=== PATIENT | male | born 1945 | race Caucasian/White ===

== ENCOUNTER → 2020-03-06 11:10 | Outpatient (BNVA) | payer MEDICARE, SELFPAY | PROVIDERS: PCP Internal Medicine Geriatric Medicine; Visit Provider Urology | DX: Z13.89 Encounter for screening for other disorder (principal) | CPT/HCPCS: 99202 ==

== ENCOUNTER 2020-03-17 07:53 | Day surgery (SDC) | payer MEDICARE, SELFPAY ==
[2020-03-11 13:21] VITALS: BMI 30.4
--- NOTE | 2020-03-13 12:23 | HO.ANESPROP2 ---
Documented by User: Sepideh Vizcarra 03/13/20 12:27 HPI - Anesthesia Eval Consult details Narrative: 74yo M for Cystoscopy, Ureteroroscopy, Retro with Stent Placement PMFSH Past Medical History Medical History Arthritis Asthma Dementia Elevated cholesterol History of colon cancer Surgical History Surgical History History of bowel resection Hx of colonoscopy Social History Social History Alcohol intake: never Smoking Status: Former smoker Smoking Quit Date: 1984 Use of substances other than those prescribed or required for medical reasons: No Advance Directives: No Advance Directives Information Provided: No Advance Directives on File: No Recently lost weight without trying: No Meds Allergies Allergy/AdvReac Type Severity Reaction Status Date / Time No Known Allergies Allergy Verified 03/11/20 13:15 Home Medications Medication Instructions Recorded Confirmed Type atorvastatin 20 mg tablet 20 mg PO DAILY 03/06/20 03/11/20 History donepezil 10 mg tablet 10 mg PO BEDTIME 03/06/20 03/11/20 History fluticasone 250 mcg-salmeterol 50 1 ea PO Q12H 03/06/20 03/11/20 History mcg/dose blistr powdr for inhalation furosemide 20 mg tablet 20 mg PO DAILY 03/06/20 03/11/20 History memantine 10 mg tablet 10 mg PO DAILY 03/06/20 03/11/20 History polyethylene glycol 3350 17 g PO 03/06/20 History gram/dose oral powder docusate sodium [DOK] 1 cap PO BID 03/11/20 03/11/20 History fluticasone propion-salmeterol 1 puff PO Q12H 03/11/20 03/11/20 History [Wixela Inhub] Exam Exam Date and Time: March 13, 2020 122 Height,Weight and Vital Signs: Height 5 ft 6 in Weight 85.729 kg Assessment and Plan Assessment Anesthesia Assessment: Chart Reviewed Documented by User: Mell James 03/17/20 09:35 [facility] Past Medical History Medical History Arthritis Asthma Dementia Elevated cholesterol History of colon cancer Surgical History Surgical History History of bowel resection Hx of colonoscopy Social History Social History Alcohol intake: never Smoking Status: Former smoker Smoking Quit Date: 1984 Use of substances other than those prescribed or required for medical reasons: No Advance Directives: No Advance Directives Information Provided: No Advance Directives on File: No Recently lost weight without trying: No Meds Allergies Allergy/AdvReac Type Severity Reaction Status Date / Time No Known Allergies Allergy Verified 03/11/20 13:15 Home Medications Medication Instructions Recorded Confirmed Type atorvastatin 20 mg tablet 20 mg PO DAILY 03/06/20 03/11/20 History donepezil 10 mg tablet 10 mg PO BEDTIME 03/06/20 03/11/20 History fluticasone 250 mcg-salmeterol 50 1 ea PO Q12H 03/06/20 03/11/20 History mcg/dose blistr powdr for inhalation furosemide 20 mg tablet 20 mg PO DAILY 03/06/20 03/11/20 History memantine 10 mg tablet 10 mg PO DAILY 03/06/20 03/11/20 History polyethylene glycol 3350 17 g PO 03/06/20 History gram/dose oral powder docusate sodium [DOK] 1 cap PO BID 03/11/20 03/11/20 History fluticasone propion-salmeterol 1 puff PO Q12H 03/11/20 03/11/20 History [Wixela Inhub] Exam Airway Mallampati Class: II TM Dist: >3cm Neck ROM: Limited Denture: Upper and Lower Assessment and Plan Assessment Anesthesia Assessment: Anesthesia Plan Discussed and Chart Reviewed Final Anesthetic Review NPO: Yes ASA Class: III Final Preanesthetic Review: No Changes in Pt Med Stat, Meds/Allgs Chart Reviewed, Consent Obtained/Reviewed and Anes Risks/Benef Reviewed Patient Risk: Intermediate Procedure Risk: Low Assessment/Block/Sedation in SS: Assess/Block/Sedation-SS Anesthetic Plan Anesthetic Plan: MAC: Disposition: Standard PACU
--- NOTE | ~2020-03-17 | FL_ITS ---
EXAMINATION: XR FLUOROSCOPY WITH IMAGES CLINICAL INFORMATION: Urinary calculus COMPARISON: None. TECHNIQUE: Fluoroscopy performed by Dr. Corky Reveles. Fluoroscopy time: 66.3 seconds Dose: 27.48 mGy Images: 5 FINDINGS / IMPRESSION * Images demonstrate opacification of the bilateral ureters and placement of bilateral nephroureteral stents * Please see operative report.
[2020-03-17] MEDS: levoFLOXacin 500 MG TABLET PO (08:00)
[2020-03-17 08:21] VITALS: BP 178/77; PULSE 79; RESP 18; TEMP 37.2; O2SAT 98; BMI 30.4
[2020-03-17] MEDS: Lactated Ringers 1,000 ML 100 ML IVCONT (08:50)
--- NOTE | 2020-03-17 09:39 | HO.ANESPROP2 ---
[facility] Active Problems Active Problems: All Active Problems (Updated 03/13/20 @ 12:27 by Sepideh Vizcarra) Hydronephrosis concurrent with and due to calculi of kidney and ureter (Acute) BPH loc w urin obs/LUTS (Acute) Weak urinary stream (Acute) Nocturia more than twice per night (Acute) Past Medical History Medical History Arthritis Asthma Dementia Elevated cholesterol History of colon cancer Surgical History Surgical History History of bowel resection Hx of colonoscopy Social History Social History Alcohol intake: never Smoking Status: Former smoker Smoking Quit Date: 1984 Use of substances other than those prescribed or required for medical reasons: No Advance Directives: No Advance Directives Information Provided: No Advance Directives on File: No Recently lost weight without trying: No Meds Allergies Allergy/AdvReac Type Severity Reaction Status Date / Time No Known Allergies Allergy Verified 03/11/20 13:15 Home Medications Medication Instructions Recorded Confirmed Type atorvastatin 20 mg tablet 20 mg PO DAILY 03/06/20 03/11/20 History donepezil 10 mg tablet 10 mg PO BEDTIME 03/06/20 03/11/20 History fluticasone 250 mcg-salmeterol 50 1 ea PO Q12H 03/06/20 03/11/20 History mcg/dose blistr powdr for inhalation furosemide 20 mg tablet 20 mg PO DAILY 03/06/20 03/11/20 History memantine 10 mg tablet 10 mg PO DAILY 03/06/20 03/11/20 History polyethylene glycol 3350 17 g PO 03/06/20 History gram/dose oral powder docusate sodium [DOK] 1 cap PO BID 03/11/20 03/11/20 History fluticasone propion-salmeterol 1 puff PO Q12H 03/11/20 03/11/20 History [[facility] Inhbhupinder] Exam Exam Date and Time: March 17, 202039 Height,Weight and Vital Signs: Height 5 ft 6 in Weight 85.7 kg Last Vital Signs Temp 98.9 F 03/17/20 08:21 Pulse 79 03/17/20 08:21 Resp 18 03/17/20 08:21 BP 178/77 H 03/17/20 08:21 Pulse Ox 98 03/17/20 08:21 Airway Mallampati Class: II TM Dist: >3cm Neck ROM: Limited Denture: Upper and Lower Assessment and Plan Assessment Anesthesia Assessment: Anesthesia Plan Discussed and Chart Reviewed Final Anesthetic Review NPO: Yes ASA Class: III Final Preanesthetic Review: No Changes in Pt Med Stat, Meds/Allgs Chart Reviewed, Consent Obtained/Reviewed and Anes Risks/Benef Reviewed Patient Risk: Intermediate Procedure Risk: Low Anesthetic Plan Anesthetic Plan: MAC: Disposition: Standard PACU
[2020-03-17 09:59] VITALS: BP 114/59; PULSE 70; RESP 16; TEMP 36.6; O2SAT 96
--- NOTE | 2020-03-17 10:10 | P.OP_ITS ---
Operative Note Operative Note Date of Service: 03/17/20 Narrative: PreOperative Diagnosis: Bilateral hydronephrosis Post Operative Diagnosis: Bilateral hydronephrosis Procedure: 1. Bilateral retrogrades, 2. Bilateral stent placement Surgeon: Dr Corky Reveles Anesthesia: Heavy sedation Indications for procedure: This is a 74-year-old Irish-speaking male. 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 Last imaging showed bilateral hydronephrosis. Baseline creatinine rising. Recommendation for bilateral retrogrades and possible ureteroscopy if required and stent for placement. Procedure: After informed consent was verified the patient was brought to the operating room and placed in a supine position. anesthesia was administered per protocol. Patient was placed in modified dorsal lithotomy position and prepped and draped in sterile fashion. Safety pause time-out was performed. Antibiotics have been given. Twenty-two Sierra Leonean cystoscope inserted per urethra. No abnormalities noted in the anterior posterior urethra. On examination the bladder the left ureteric orifice was curled on the backside of the trigone and difficult to access. The right ureteric orifices normal position. This was cannulated with a wire and then a 4 [place] open-ended catheter placed. A retrograde examination showed multiple surgical clips on the right pelvic sidewall and narrowing of the ureter with significant hydroureteronephrosis proximally to this area. This may well have been denuded during prior surgery and devascularization causing a distal stricture. We were able to place a 6 [place]an by 22 cm stent and will review creatinine in 2 weeks for response. On the left side using an an angled Glidewire we were able to gain access to the ureter. This too was tortuous but no obvious stricture. This may have been due to his enlarged prostate. We placed a guidewire up to the level renal pelvis and a 6 [place] by 22 cm double-J stent. He tolerated the procedure well was transferred in a stable condition to recovery area. Pathology: None Drains: Six [place]an by 22 cm double-J stent placed bilaterally
--- NOTE | 2020-03-17 10:10 | PM.OP ---
Brief Operative Note Date of Service: 03/17/20 Pre-op diagnosis: Bilateral hydronephrosis Post-op diagnosis: same Procedure: 1. Bilateral retrograde 2. Bilateral hydronephrosis Implants: Bilateral stents 6 Bulgarian by 22 cm double-J Surgeon: Corky Reveles MD Anesthesia: MAC Estimated blood loss (mL): 0 Pathology: none sent Condition: stable Disposition: same day
[2020-03-17 10:15] VITALS: BP 134/66; PULSE 65; RESP 16; O2SAT 96
[2020-03-17] MEDS: Phenazopyridine HCL 100 MG TABLET PO (10:27)
[2020-03-17 10:30] VITALS: BP 137/71; PULSE 62; RESP 16; O2SAT 97
[2020-03-17 10:45] VITALS: BP 138/73; PULSE 63; RESP 16; TEMP 36.7; O2SAT 97
--- NOTE | 2020-03-17 11:01 | HO.POSTANES ---
Post Anesthesia Evaluation Post Anesthesia Evaluation Vital Signs: Vital Signs Temp Pulse Resp BP Pulse Ox 03/17/20 10:45 98.1 F 63 16 138/73 97 03/17/20 10:30 62 16 137/71 97 03/17/20 10:15 65 16 134/66 96 03/17/20 09:59 98 F 70 16 114/59 L 96 03/17/20 08:21 98.9 F 79 18 178/77 H 98 Anesthesia: General Mental Status: Awake Pain Control: Satisfactory Nausea/Vomiting: None Hydration: Adequate Anesthesia-Related Issues: No Anes. Related Issues
== END 2020-03-17 11:35 | disposition home or self-care (01) ==
PROVIDERS: PCP Internal Medicine Geriatric Medicine; Visit Provider Urology
PROC: (CPT 52332; principal; 2020-03-17 09:20)
DX: N13.1 Hydronephrosis with ureteral stricture, not elsewhere classified (principal); N40.1 Benign prostatic hyperplasia with lower urinary tract symptoms; N13.8 Other obstructive and reflux uropathy; R39.12 Poor urinary stream; R35.1 Nocturia; Z85.038 Personal history of other malignant neoplasm of large intestine; Z98.890 Other specified postprocedural states
CPT/HCPCS: 52332; C1769; C2617; J2405; J3010; Q9967

== ENCOUNTER → 2020-04-02 10:35 | Outpatient (BNVA) | payer MEDICARE, SELFPAY | PROVIDERS: PCP Internal Medicine Geriatric Medicine; Visit Provider Urology | DX: Z13.89 Encounter for screening for other disorder (principal) | CPT/HCPCS: Q3014 ==

== ENCOUNTER → 2020-09-04 13:46 | Outpatient (BNVA) | payer MEDICARE, SELFPAY | PROVIDERS: PCP Internal Medicine Geriatric Medicine; Referring Provider Internal Medicine Geriatric Medicine; Visit Provider Nurse Practitioner | DX: K59.00 Constipation, unspecified (principal); K64.9 Unspecified hemorrhoids; E78.00 Pure hypercholesterolemia, unspecified | CPT/HCPCS: Q3014 ==

== ENCOUNTER → 2020-09-10 13:30 | Outpatient (BNVA) | payer MEDICARE, SELFPAY | PROVIDERS: PCP Internal Medicine Geriatric Medicine; Visit Provider Urology | DX: N13.1 Hydronephrosis with ureteral stricture, not elsewhere classified (principal); N40.1 Benign prostatic hyperplasia with lower urinary tract symptoms; R39.12 Poor urinary stream | CPT/HCPCS: 81002; 99212 ==

== ENCOUNTER 2020-10-06 12:44 | Day surgery (SDC) | payer MEDICARE, SELFPAY ==
[2020-09-30 15:24] VITALS: BMI 30.4
--- NOTE | 2020-10-03 11:50 | HO.ANESPROP2 ---
Documented by User: Sepideh Vizcarra NP 10/03/20 11:51 HPI - Anesthesia Eval Consult details Narrative: 75yo M for Bilateral Cystoscopy & Stent removal and Placement s/p cysto, stent 03/2020 with MAC [facility] Active Problems Active Problems: All Active Problems (Updated 09/30/20 @ 15:27 by Sylvia Campa RN) BPH loc w urin obs/LUTS (Acute) Weak urinary stream (Acute) Nocturia more than twice per night (Acute) Hydronephrosis concurrent with and due to ureteral stricture (Acute) Constipation in male (Acute) Hemorrhoids (Acute) Past Medical History Medical History (Updated 09/30/20 @ 15:27 by Sylvia Campa RN) Arthritis Asthma COVID-19 vaccine series completed Dementia Elevated cholesterol History of colon cancer Surgical History Surgical History (Updated 09/30/20 @ 15:27 by Sylvia Campa RN) History of bowel resection Hx of colonoscopy Hx of cystoscopy Social History Social History Alcohol intake: never Patient Tobacco Use Status: Former Tobacco user Quit Date: 1990 Tobacco use type: Cigarette Use of substances other than those prescribed or required for medical reasons: No Are you DNR?: No Advance Directives Information Provided: No Advance Directives on File: No Recently lost weight without trying: No Eating poorly because of decreased appetite: No Nutrition Risks: Surgical patient >75years Meds Allergies Allergy/AdvReac Type Severity Reaction Status Date / Time No Known Allergies Allergy Verified 09/04/20 13:49 Home Medications Medication Instructions Recorded Confirmed Last Taken Type atorvastatin 20 mg tablet 20 mg PO DAILY 03/06/20 09/30/20 Unknown History donepezil 10 mg tablet 10 mg PO BEDTIME 03/06/20 09/30/20 Unknown History fluticasone 250 mcg-salmeterol 50 1 ea PO Q12H 03/06/20 09/30/20 03/17/20 History mcg/dose blistr powdr for inhalation furosemide 20 mg tablet 20 mg PO DAILY 03/06/20 09/30/20 Unknown History memantine 10 mg tablet 10 mg PO DAILY 03/06/20 09/30/20 Unknown History fluticasone 250 mcg-salmeterol 50 1 puff PO Q12H 03/11/20 09/30/20 03/17/20 History mcg/dose blistr powdr for inhalation (Vanessajddavey Tiradobhupinder) Exam Exam Date and Time: October 03, 2020 1150 Height,Weight and Vital Signs: Height 5 ft 6 in Weight 85.7 kg Assessment and Plan Assessment Anesthesia Assessment: Chart Reviewed Documented by User: Tea Palencia MD 10/06/20 13:27 [facility] Past Medical History Medical History (Updated 09/30/20 @ 15:27 by Sylvia Campa RN) Arthritis Asthma COVID-19 vaccine series completed Dementia Elevated cholesterol History of colon cancer Family History Family history of problems with anesthesia: No Surgical History Surgical History (Updated 09/30/20 @ 15:27 by Sylvia Campa RN) History of bowel resection Hx of colonoscopy Hx of cystoscopy History of Problems with Anesthesia: No Social History Social History Alcohol intake: never Patient Tobacco Use Status: Former Tobacco user Quit Date: 1990 Tobacco use type: Cigarette Use of substances other than those prescribed or required for medical reasons: No Are you DNR?: No Advance Directives Information Provided: No Advance Directives on File: No Recently lost weight without trying: No Eating poorly because of decreased appetite: No Nutrition Risks: Surgical patient >75years Meds Allergies Allergy/AdvReac Type Severity Reaction Status Date / Time No Known Allergies Allergy Verified 09/04/20 13:49 Home Medications Medication Instructions Recorded Confirmed Last Taken Type atorvastatin 20 mg tablet 20 mg PO DAILY 03/06/20 09/30/20 Unknown History donepezil 10 mg tablet 10 mg PO BEDTIME 03/06/20 09/30/20 Unknown History fluticasone 250 mcg-salmeterol 50 1 ea PO Q12H 03/06/20 09/30/20 03/17/20 History mcg/dose blistr powdr for inhalation furosemide 20 mg tablet 20 mg PO DAILY 03/06/20 09/30/20 Unknown History memantine 10 mg tablet 10 mg PO DAILY 03/06/20 09/30/20 Unknown History fluticasone 250 mcg-salmeterol 50 1 puff PO Q12H 03/11/20 09/30/20 03/17/20 History mcg/dose blistr powdr for inhalation (Wixela Inhub) Exam Airway Mallampati Class: II TM Dist: >3cm Neck ROM: Full Heart: rrr Lungs: cta bl Assessment and Plan Assessment Anesthesia Assessment: Anesthesia Plan Discussed and Chart Reviewed Final Anesthetic Review Family History of Problems with Anesthesia: No History of Problems with Anesthesia: No NPO: Yes ASA Class: III Final Preanesthetic Review: No Changes in Pt Med Stat, Meds/Allgs Chart Reviewed and Consent Obtained/Reviewed Patient Risk: Intermediate Procedure Risk: Intermediate Anesthetic Plan Anesthetic Plan: GA Disposition: Standard PACU
[2020-10-06] VITALS (7 sets, daily range): BP systolic 119–164; BP diastolic 48–70; PULSE 60–74; RESP 16–20; TEMP 36.3–36.9; O2SAT 93–99
--- NOTE | ~2020-10-06 | FL_ITS ---
EXAMINATION: XR FLUOROSCOPY WITH IMAGES CLINICAL INFORMATION: Bilateral ureteral stent removal and placement COMPARISON: None. TECHNIQUE: Fluoroscopy performed by Dr. Corky Reveles. Fluoroscopy time: 1.5 minutes Dose: 35 mgy Images: 1 FINDINGS: Single fluoroscopic image is limited due to motion. The proximal end of the left internal ureteral stent is seen. There is contrast in the left renal collecting system which does not appear dilated. FL/FL guidance in OR IMPRESSION: Fluoroscopy guidance for bilateral ureteral stent removal and placement.
[2020-10-06] MEDS: levoFLOXacin 500 MG TABLET PO (13:28)
[2020-10-06] MEDS: Lactated Ringers 1,000 ML 100 ML IVCONT (13:28)
--- NOTE | 2020-10-06 14:21 | P.HPSUR_ITS ---
Pre-Procedural Eval Section A Date of Service: 10/06/20 Section B Chief Complaint: hydronephrosis Details of Present Illness: Bilateral hydronephrosis Relevant Social History: None Present Medications: see Short Stay Collaborative assessment Medical History: No relevant PMH History of Previous Operations: Relevant previous surgery/procedure and date(s) Allergies: Allergies Allergy/AdvReac Type Severity Reaction Status Date / Time No Known Allergies Allergy Verified 09/04/20 13:49 Review of Systems Sugical H&P ROS: Negative: Constitution, Cardiovascular, Respiratory, Neurological, Psychiatric, Hem-Onc, Allergic/Immunologic, Gastrointestinal, Genitourinary, Musculoskeletal, Integumentary, Endocrine and Eyes/Ears/Nose/Throat Exam Surgical H&P Exam: Normal: HEENT, Normal: Heart, Normal: Lungs, Normal: Ex tremities, Normal: Abdomen, Normal: Skin and Normal: Neurological Plan Diagnosis/Plan: Unchanged (Cystoscopy, bilateral stent change) I have reviewed the history and physical and performed a pertinent physical examination on my patient. No changes have occurred unless specified.
[2020-10-06] MEDS: Phenazopyridine HCL 100 MG TABLET PO (16:02)
--- NOTE | 2020-12-10 15:56 | W.PM.OPN ---
Operative Note Operative Note Date of Service: 10/06/20 Narrative: PreOperative Diagnosis: Bilateral ureteric stricture with indwelling stents Post Operative Diagnosis: Bilateral ureteric tortuosity with indwelling stents Procedure: 1. Cystoscopy with left retrograde, 2. Left stent removal, 3. Left stent placement 4. Right retrograde 5. Right stent removal Surgeon: Dr Corky Reveles Anesthesia: General Indications for procedure: Known tortuosity secondary to pelvic mass. Has bilateral indwelling stents. Here for stent exchange Procedure: After informed consent was verified the patient was brought to the operating room and placed in a supine position. Anesthesia was administered per protocol. Safety pause time-out was performed. Antibiotics have been given. Twenty-two St Helenian cystoscope inserted per urethra. Both ureteric stent seen in normal position. Wire placed alongside left ureteric stent. Retrograde examination performed. Left ureter stent removed. A 6 [place] Helen[place] by 22 cm double-J stent placed on left side. Similar procedure repeated on the right side. During removal of right stent a wire came down. We were unable to advance the wire and so decision was made not to leave a stent on the right side. Will be followed for creatinine evaluation. He tolerated procedure well was extubated in operating room transferred in stable condition to the recovery area. Pathology: Drains: Left double-J ureteric stent
== END 2020-10-06 16:45 | disposition home or self-care (01) ==
PROVIDERS: PCP Internal Medicine Geriatric Medicine; Visit Provider Urology
PROC: (CPT 52332; principal; 2020-10-06 14:30)
DX: N13.1 Hydronephrosis with ureteral stricture, not elsewhere classified (principal); J45.909 Unspecified asthma, uncomplicated; F03.90 Unspecified dementia, unspecified severity, without behavioral disturbance, psychotic disturbance, mood disturbance, and anxiety; Z85.038 Personal history of other malignant neoplasm of large intestine; Z92.21 Personal history of antineoplastic chemotherapy; Z92.3 Personal history of irradiation; Z90.49 Acquired absence of other specified parts of digestive tract; Z87.891 Personal history of nicotine dependence; Z79.51 Long term (current) use of inhaled steroids; Z79.899 Other long term (current) drug therapy
CPT/HCPCS: 52332; C1758; C1769; C2617; J1100; J2250; J2405; J3010; Q9967

== ENCOUNTER → 2020-10-27 09:13 | Outpatient (BNVA) | payer MEDICARE, SELFPAY | PROVIDERS: PCP Internal Medicine Geriatric Medicine; Visit Provider Nurse Practitioner | DX: K58.1 Irritable bowel syndrome with constipation (principal); Z85.038 Personal history of other malignant neoplasm of large intestine | CPT/HCPCS: Q3014 ==

== ENCOUNTER → 2020-10-30 11:21 | Outpatient (BNVA) | payer MEDICARE, SELFPAY | PROVIDERS: PCP Internal Medicine Geriatric Medicine; Visit Provider Urology | DX: N13.1 Hydronephrosis with ureteral stricture, not elsewhere classified (principal) | CPT/HCPCS: Q3014 ==

== ENCOUNTER 2020-10-31 10:19 | Day surgery (SDC) | payer MEDICARE, SELFPAY ==
--- NOTE | 2020-10-30 10:29 | HO.ANESPROP2 ---
Documented by User: Sepideh Vizcarra NP 10/30/20 10:31 HPI - Anesthesia Eval Consult details Narrative: 75yo M for Colonoscopy s/p cysto/stent 09/2020 with GA-LMA 4 PMFSH Active Problems Active Problems: All Active Problems (Updated 10/27/20 @ 10:29 by ELLYN Arnold) History of colon cancer (Acute) HTN (hypertension), benign (Acute) High cholesterol (Acute) Irritable bowel syndrome with constipation (Acute) BPH loc w urin obs/LUTS (Acute) Weak urinary stream (Acute) Nocturia more than twice per night (Acute) Hydronephrosis concurrent with and due to ureteral stricture (Acute) Constipation in male (Acute) Hemorrhoids (Acute) Past Medical History Medical History (Updated 10/30/20 @ 13:59 by Corky Reveles MD) Arthritis Asthma COVID-19 vaccine series completed Dementia Elevated cholesterol History of colon cancer Family History Family history of problems with anesthesia: No Surgical History Surgical History History of bowel resection Hx of colonoscopy Hx of cystoscopy History of Problems with Anesthesia: No Social History Social History Alcohol intake: never Patient Tobacco Use Status: Former Tobacco user Quit Date: 1990 Tobacco use type: Cigarette Use of substances other than those prescribed or required for medical reasons: No Advance Directives: No Advance Directives Information Provided: Yes Meds Allergies Allergy/AdvReac Type Severity Reaction Status Date / Time No Known Allergies Allergy Verified 10/30/20 11:22 Home Medications Medication Instructions Recorded Confirmed Last Taken Type atorvastatin 20 mg tablet 20 mg PO DAILY 03/06/20 09/30/20 Unknown History donepezil 10 mg tablet 10 mg PO BEDTIME 03/06/20 09/30/20 Unknown History fluticasone 250 mcg-salmeterol 50 1 ea PO Q12H 03/06/20 09/30/20 03/17/20 History mcg/dose blistr powdr for inhalation furosemide 20 mg tablet 20 mg PO DAILY 03/06/20 09/30/20 Unknown History memantine 10 mg tablet 10 mg PO DAILY 03/06/20 09/30/20 Unknown History fluticasone 250 mcg-salmeterol 50 1 puff PO Q12H 03/11/20 09/30/20 03/17/20 History mcg/dose blistr powdr for inhalation (Rivera Navas) gabapentin 300 mg capsule 300 mg PO DAILY 10/27/20 Unknown History omeprazole 40 mg capsule,delayed 40 mg PO DAILY 10/27/20 Unknown History release Exam Exam Date and Time: October 30, 2020 102 Assessment and Plan Assessment Anesthesia Assessment: Chart Reviewed Final Anesthetic Review Family History of Problems with Anesthesia: No History of Problems with Anesthesia: No Documented by User: Shwetha Gonzalez MD 10/31/20 11:28 [facility] Past Medical History Medical History (Updated 10/30/20 @ 13:59 by Corky Reveles MD) Arthritis Asthma COVID-19 vaccine series completed Dementia Elevated cholesterol History of colon cancer Surgical History Surgical History History of bowel resection Hx of colonoscopy Hx of cystoscopy Social History Social History Alcohol intake: never Patient Tobacco Use Status: Former Tobacco user Quit Date: 1990 Tobacco use type: Cigarette Use of substances other than those prescribed or required for medical reasons: No Advance Directives: No Advance Directives Information Provided: Yes Meds Allergies Allergy/AdvReac Type Severity Reaction Status Date / Time No Known Allergies Allergy Verified 10/30/20 11:22 Home Medications Medication Instructions Recorded Confirmed Last Taken Type atorvastatin 20 mg tablet 20 mg PO DAILY 03/06/20 09/30/20 Unknown History donepezil 10 mg tablet 10 mg PO BEDTIME 03/06/20 09/30/20 Unknown History fluticasone 250 mcg-salmeterol 50 1 ea PO Q12H 03/06/20 09/30/20 03/17/20 History mcg/dose blistr powdr for inhalation furosemide 20 mg tablet 20 mg PO DAILY 03/06/20 09/30/20 Unknown History memantine 10 mg tablet 10 mg PO DAILY 03/06/20 09/30/20 Unknown History fluticasone 250 mcg-salmeterol 50 1 puff PO Q12H 03/11/20 09/30/20 03/17/20 History mcg/dose blistr powdr for inhalation (Rivera Inhub) gabapentin 300 mg capsule 300 mg PO DAILY 10/27/20 Unknown History omeprazole 40 mg capsule,delayed 40 mg PO DAILY 10/27/20 Unknown History release Exam Height,Weight and Vital Signs: Height 5 ft 6 in Weight 82.554 kg Vital Signs Temp Pulse Resp BP Pulse Ox 10/31/20 10:31 97.4 F 58 16 135/59 L 99 Narrative Narrative: Daughter signs permit Airway Mallampati Class: III TM Dist: >3cm Neck ROM: Full Denture: Upper Partial: Lower Heart: RRR Lungs: CTAB Assessment and Plan Assessment Anesthesia Assessment: Anesthesia Plan Discussed Final Anesthetic Review NPO: Yes ASA Class: III Final Preanesthetic Review: No Changes in Pt Med Stat, Meds/Allgs Chart Reviewed, Consent Obtained/Reviewed and Anes Risks/Benef Reviewed Patient Risk: Intermediate Procedure Risk: Low Assessment/Block/Sedation in SS: Assess/Block/Sedation-SS Anesthetic Plan Anesthetic Plan: MAC: Disposition: Standard PACU
[2020-10-31 10:31] VITALS: BP 135/59; PULSE 58; RESP 16; TEMP 36.3; O2SAT 99; BMI 29.3
--- NOTE | 2020-10-31 10:40 | MHC.SHP ---
Pre-Procedural Eval Section A Date of Service: 10/31/20 The patient is an INPATIENT: No Changes since office visit: Yes Patient answered all questions; No Cold of Flu in the past 2 weeks, No New Medical Problems and No Changes in Medication The History & Physical has been completed within 30 days and I have reviewed it.: Yes Section B Chief Complaint: hx of colon cancer Allergies: Allergies Allergy/AdvReac Type Severity Reaction Status Date / Time No Known Allergies Allergy Verified 10/30/20 11:22 Plan Diagnosis/Plan: Unchanged I have reviewed the history and physical and performed a pertinent physical examination on my patient. No changes have occurred unless specified.
[2020-10-31] MEDS: Lactated Ringers 1,000 ML 100 ML IVCONT (11:01)
--- NOTE | 2020-10-31 12:14 | PM.OP ---
Brief Operative Note Date of Service: 10/31/20 Pre-op diagnosis: Follow-up of recurrent colon cancer, chronic constipation, rectal burning Post-op diagnosis: other (Colon polyps, diverticulosis, hemorrhoids, mass sigmoid colon) Procedure: COLONOSCOPY TILL CECUM WITH BIOPSIES AND SNARE POLYPECTOMY Consent: Indications for the procedure and potential complications of bleeding, perforation, reaction to medications and missed diagnosis were discussed with the patient and his daughter and informed consent was obtained from the daughter (HCP). Instrument: Olympus PCF H 190 L variable stiffness pediatric colonoscope Monitoring: Vital signs and clinical assessment, intermittent blood pressure monitoring, continuous EKG monitoring, Pulse oximetry and Carbon Dioxide monitoring were done throughout the procedure. Colon withdrawl time was 18 minutes. Procedure: The patient was placed in the left lateral decubitis position and pre-procedure medications were administered. After a digital rectal examination of the ano-rectum, the video colonoscope was inserted into the rectum and advanced through the colon to the cecum. The colonoscope was slowly withdrawn in a retrograde panoramic fashion and the colon mucosa was carefully examined including a retroflexed view of the rectum. Findings and interventions are described below. Procedure Difficulty: Without difficulty Findings: Terminal Ileum: Distal 10 cms was examined and appeared normal Cecum: Normal Ascending Colon: A 10 mm sessile polyp in the distal ascending colon removed with hot snare Transverse Colon: Normal Descending Colon: Normal Sigmoid Colon: A 10 mm sessile polyp at 35 cms removed with a hot snare. Partially obstructing circumferential mass at 18 - 20 cms - multiple biopsies were obtained. Pediatric colonoscope passed through the mass with minimal resistance. Moderate diverticulosis Rectum: Normal Ano-rectum: Moderate internal hemorrhoids Colon preparation: Good after some irrigation Impression and Post Procedure Diagnosis: Colonoscopy Findings: Two medium sized polyps removed Moderate diverticulosis seen in the sigmoid colon Moderate hemorrhoids on retroflexed exam. Plan: Await pathology results Patient has an appointment on 11/24/20 in the GI Clinic with Lizeth Chi NP . Patient to follow up with Oncology at [facility] on 11/14/20. Above findings were reviewed with the patient and his daughter, Queta, and colon polyps and colon cancer handouts were given in the discharge area A copy of the Colonoscopy procedure report and photographs were given to Queta to take to the Oncology appt. Surgeon: Matt Santo MD Anesthesia: MAC (Aziz Ashirov, FLOOR TILING PROFESSIONAL) Was an Optical Brightener Maker Helper used for this Procedure?: No Optical Brightener Maker Helper: Steffanie Neri Estimated blood loss (mL): 0 Pathology: other (A. ASCENDING COLON POLYP B. SIGMOID POLYP C. SIGMOID COLON MASS at 18-20 cms.) Condition: stable Disposition: PACU
[2020-10-31 12:15] VITALS: BP 115/52; PULSE 54; RESP 12; TEMP 36.1; O2SAT 96
[2020-10-31 12:30] VITALS: BP 116/48; PULSE 53; RESP 16; TEMP 36.1; O2SAT 98
--- NOTE | 2020-11-01 12:24 | W.PM.OPN ---
Operative Note Operative Note Date of Service: 10/31/20 Narrative: Pre-op diagnosis:?Follow-up of recurrent colon cancer, chronic constipation, rectal burning Post-op diagnosis:?other (Colon polyps, diverticulosis, hemorrhoids, mass sigmoid colon) Procedure:? COLONOSCOPY TILL CECUM WITH BIOPSIES AND SNARE POLYPECTOMY Consent: Indications for the procedure and potential complications of bleeding, perforation, reaction to medications and missed diagnosis were discussed with the patient and his daughter and informed consent was obtained from the daughter (HCP). Instrument: Olympus PCF H 190 L variable stiffness pediatric colonoscope Monitoring: Vital signs and clinical assessment, intermittent blood pressure monitoring, continuous EKG monitoring, Pulse oximetry and Carbon Dioxide monitoring were done throughout the procedure. Colon withdrawl time was 18 minutes. Procedure: The patient was placed in the left lateral decubitis position and pre-procedure medications were administered. After a digital rectal examination of the ano-rectum, the video colonoscope was inserted into the rectum and advanced through the colon to the cecum. The colonoscope was slowly withdrawn in a retrograde panoramic fashion and the colon mucosa was carefully examined including a retroflexed view of the rectum. Findings and interventions are described below. Procedure Difficulty: Without difficulty Findings: Terminal Ileum: Distal 10 cms was examined and appeared normal Cecum:? Normal Ascending Colon:? A 10 mm sessile polyp in the distal ascending colon removed with hot snare Transverse Colon:? Normal Descending Colon:? Normal Sigmoid Colon:? A 10 mm sessile polyp at 35 cms removed with a hot snare. Partially obstructing circumferential mass at 18 - 20 cms - multiple biopsies were obtained. Pediatric colonoscope passed through the mass with minimal resistance. Moderate diverticulosis Rectum:? Normal Ano-rectum:? Moderate internal hemorrhoids Colon preparation:? Good? after some irrigation Impression and Post Procedure Diagnosis: Colonoscopy Findings: Two medium sized polyps removed Moderate diverticulosis seen in the sigmoid colon Moderate hemorrhoids on retroflexed exam. Plan: Await pathology results Patient has an appointment on 11/24/20 in the GI Clinic with? Lizeth Chi NP? . Patient to follow up with Oncology at [facility] on 11/14/20. Above findings were reviewed with the patient and his daughter, Queta, and colon polyps and colon cancer handouts were given in the discharge area A copy of the Colonoscopy procedure report and photographs were given to Queta to take to the Oncology appt. Surgeon:?Matt Santo MD Anesthesia:?MAC (Comfort Longo CRNA) Was an Pharmacist Per Diem used for this Procedure?:?No Pharmacist Per Diem:?Steffanie Neri Estimated blood loss (mL):?0 Pathology:?other (A. ASCENDING COLON POLYP? B. SIGMOID POLYP? C. SIGMOID COLON MASS at 18-20 cms.) Condition:?stable Disposition:?PACU
== END 2020-10-31 13:20 | disposition home or self-care (01) ==
PROVIDERS: PCP Internal Medicine Geriatric Medicine; Visit Provider Internal Medicine Gastroenterology
PROC: 0DJD8ZZ Inspection of Lower Intestinal Tract, Via Natural or Artificial Opening Endoscopic (ICD-10-PCS; CPT 45378; principal; 2020-10-31 12:10)
DX: Z12.11 Encounter for screening for malignant neoplasm of colon (principal); D12.2 Benign neoplasm of ascending colon; K63.89 Other specified diseases of intestine; K57.30 Diverticulosis of large intestine without perforation or abscess without bleeding; K64.8 Other hemorrhoids; Z85.038 Personal history of other malignant neoplasm of large intestine; K59.09 Other constipation; J45.909 Unspecified asthma, uncomplicated; Z92.21 Personal history of antineoplastic chemotherapy; Z92.3 Personal history of irradiation
CPT/HCPCS: 45385; 45380; 88305

== ENCOUNTER 2020-11-24 13:52 | Outpatient (REF) | payer MEDICARE, SELFPAY ==
--- NOTE | ~2020-11-24 | US_ITS ---
EXAMINATION: US RETROPERITONEAL LIMITED (RENAL ONLY) CLINICAL INFORMATION: Hydronephrosis with ureteral stricture, not elsewhere classified. COMPARISON: None TECHNIQUE: Real-time imaging of the kidneys. FINDINGS: RIGHT KIDNEY: 11.8 x 7.0 x 5.4 cm (SAG x AP x TRV). Moderate right hydronephrosis is seen. No overt nephrolithiasis. Color Doppler showed no abnormal vascular flow. LEFT KIDNEY: 11.3 x 5.3 x 5.9 cm (SAG x AP x TRV). A lower pole exophytic anechoic cyst measures 1.3 cm. Color Doppler showed no abnormal vascular flow. No left hydronephrosis or nephrolithiasis. US/US renal BI IMPRESSION: 1. Moderate right hydronephrosis. A causative abnormality is not identified. 2. Small left lower pole cyst demonstrates benign features.
== END 2020-11-24 13:53 | disposition home or self-care (01) ==
LOC: HO.US 13:52
PROVIDERS: Visit Provider Urology
DX: N13.1 Hydronephrosis with ureteral stricture, not elsewhere classified (principal)
CPT/HCPCS: 76775; Q3014

== ENCOUNTER → 2021-01-29 13:46 | Outpatient (BNVA) | payer MEDICARE, SELFPAY | PROVIDERS: PCP Internal Medicine Geriatric Medicine; Visit Provider Urology | DX: N13.1 Hydronephrosis with ureteral stricture, not elsewhere classified (principal) | CPT/HCPCS: Q3014 ==

== ENCOUNTER → 2021-02-17 11:48 | Outpatient (BNVA) | payer MEDICARE, SELFPAY | PROVIDERS: PCP Internal Medicine Geriatric Medicine; Referring Provider Internal Medicine Geriatric Medicine; Visit Provider Nurse Practitioner | DX: K58.1 Irritable bowel syndrome with constipation (principal); K52.1 Toxic gastroenteritis and colitis; R10.13 Epigastric pain; Z85.038 Personal history of other malignant neoplasm of large intestine | CPT/HCPCS: 99212 ==

== ENCOUNTER 2021-03-09 11:30 | Day surgery (SDC) | payer MEDICARE, SELFPAY ==
[2021-03-03 14:59] VITALS: BMI 29.3
--- NOTE | 2021-03-04 15:43 | P.CONAN_ITS ---
Documented by User: Sepideh Vizcarra NP 03/04/21 15:51 HPI - Anesthesia Eval Consult details Narrative: 75yo M for Bilateral Right Cystoscopy & Stent Placement,(L) cystoscopy stent exchange s/p cysto/stent 09/2020 with GA-LMA 4 Current chemo infusion [id number] for colon CA Daughter is proxy d/t dementia [facility] Active Problems Active Problems: All Active Problems (Updated 02/17/21 @ 15:43 by ELLYN Arnold) BPH loc w urin obs/LUTS (Acute) Weak urinary stream (Acute) Nocturia more than twice per night (Acute) Hydronephrosis concurrent with and due to ureteral stricture (Acute) Constipation in male (Acute) Hemorrhoids (Acute) Irritable bowel syndrome with constipation (Acute) High cholesterol (Acute) HTN (hypertension), benign (Acute) Diarrhea due to drug (Acute) Epigastric pain (Acute) History of colon cancer (Acute) Past Medical History Medical History (Updated 02/17/21 @ 15:43 by ELLYN Arnold) Arthritis Asthma COVID-19 vaccine series completed Dementia Elevated cholesterol History of colon cancer Family History Family history of problems with anesthesia: No Surgical History Surgical History (Updated 03/03/21 @ 14:51 by Sylvia Campa RN) History of bowel resection Hx of colonoscopy Hx of cystoscopy Hx of cystoscopy History of Problems with Anesthesia: No Social History Social History Alcohol intake: never Patient Tobacco Use Status: Former Tobacco user Quit Date: 1990 Tobacco use type: Cigarette Meds Allergies Allergy/AdvReac Type Severity Reaction Status Date / Time No Known Allergies Allergy Verified 02/17/21 12:01 Home Medications Medication Instructions Recorded Confirmed Last Taken Type atorvastatin 20 20 mg PO DAILY 03/06/20 09/30/20 Unknown History mg tablet donepezil 10 mg 10 mg PO BEDTIME 03/06/20 09/30/20 Unknown History tablet fluticasone 250 1 ea PO Q12H 03/06/20 09/30/20 03/17/20 History mcg-salmeterol 50 mcg/dose blistr powdr for inhalation furosemide 20 mg 20 mg PO DAILY 03/06/20 09/30/20 Unknown History tablet memantine 10 mg 10 mg PO DAILY 03/06/20 09/30/20 Unknown History tablet fluticasone 250 1 puff PO Q12H 03/11/20 09/30/20 03/17/20 History mcg-salmeterol 50 mcg/dose blistr powdr for inhalation (Rivera Navas) gabapentin 300 mg 300 mg PO DAILY 10/27/20 Unknown History capsule omeprazole 40 mg 40 mg PO DAILY 10/27/20 Unknown History capsule,delayed release Exam Exam Date and Time: March 04, 2021 1543 Height,Weight and Vital Signs: Height 5 ft 6 in Weight 82.554 kg Assessment and Plan Assessment Anesthesia Assessment: Chart Reviewed Final Anesthetic Review Family History of Problems with Anesthesia: No History of Problems with Anesthesia: No Documented by User: Khoi Rodriguez 03/09/21 18:13 [facility] Past Medical History Medical History (Updated 02/17/21 @ 15:43 by ELLYN Arnold) Arthritis Asthma COVID-19 vaccine series completed Dementia Elevated cholesterol History of colon cancer Functional capacity: independent ambulation Surgical History Surgical History (Updated 03/03/21 @ 14:51 by Sylvia Campa RN) History of bowel resection Hx of colonoscopy Hx of cystoscopy Hx of cystoscopy Social History Social History Alcohol intake: never Patient Tobacco Use Status: Former Tobacco user Quit Date: 1990 Tobacco use type: Cigarette Meds Allergies Allergy/AdvReac Type Severity Reaction Status Date / Time No Known Allergies Allergy Verified 02/17/21 12:01 Home Medications Medication Instructions Recorded Confirmed Last Taken Type atorvastatin 20 20 mg PO DAILY 03/06/20 09/30/20 Unknown History mg tablet donepezil 10 mg 10 mg PO BEDTIME 03/06/20 09/30/20 Unknown History tablet fluticasone 250 1 ea PO Q12H 03/06/20 09/30/20 03/17/20 History mcg-salmeterol 50 mcg/dose blistr powdr for inhalation furosemide 20 mg 20 mg PO DAILY 03/06/20 09/30/20 Unknown History tablet memantine 10 mg 10 mg PO DAILY 03/06/20 09/30/20 Unknown History tablet fluticasone 250 1 puff PO Q12H 03/11/20 09/30/20 03/17/20 History mcg-salmeterol 50 mcg/dose blistr powdr for inhalation (Wixela Inhub) gabapentin 300 mg 300 mg PO DAILY 10/27/20 Unknown History capsule omeprazole 40 mg 40 mg PO DAILY 10/27/20 Unknown History capsule,delayed release Exam Airway Mallampati Class: III Denture: Upper and Lower Loose/Missing/Broken Teeth: Yes Heart: rrr Lungs: bl breath sounds Assessment and Plan Final Anesthetic Review NPO: Yes ASA Class: III Patient Risk: Intermediate Procedure Risk: Intermediate Anesthetic Plan Anesthetic Plan: GA Disposition: Standard PACU
[2021-03-09] VITALS (8 sets, daily range): BP systolic 105–136; BP diastolic 45–58; PULSE 60–72; RESP 14–18; TEMP 36.8–37.1; O2SAT 97–99
--- NOTE | ~2021-03-09 | FL_ITS ---
EXAMINATION: XR FLUOROSCOPY WITH IMAGES CLINICAL INFORMATION: Stent placement COMPARISON: None. TECHNIQUE: Fluoroscopy performed by Dr. Corky Reveles. Fluoroscopy time: 85.77) Dose: 23.31 mGy. Images: 2 FINDINGS: There are 2 images of the abdomen with first image revealing ureter within the left upper pole calyx of the kidney. In the same image there is a double ureteral stent with its proximal end in the kidney pelvis. The subsequent image reveals contrast opacifying the distal ureter with proximal pigtail stent in the distal ureter as well. FL/FL guidance in OR IMPRESSION: Same as described above.
[2021-03-09 12:13] LABS: Hematocrit 32.2 % (42.0-52.0); Hemoglobin 10.2 g/dl (14.0-18.0); Mean Corpuscular HGB Conc 31.7 g/dl (31.0-36.0); Mean Corpuscular Hemoglobin 30.4 pg (27.0-33.0); Mean Corpuscular Volume 95.8 fL (80.0-98.0); Mean Platelet Volume 10.5 fL (9.4-12.4); Platelet Count 150 X10*3/uL (160-400); Red Blood Count 3.36 X10*6/uL (4.60-5.80); Red Cell Distribution Width 15.6 % (11.0-16.0); White Blood Count 7.4 X10*3/uL (4.8-10.8)
[2021-03-09 12:26] LABS: Anion Gap 14 (12-20); Blood Urea Nitrogen 22 mg/dL (9-16); Calcium 8.9 mg/dL (8.4-10.2); Carbon Dioxide 18 mmol/L (22-29); Chloride 111 mmol/L (96-108); Estimated Glomerular Filt Rate 41; Glucose Fasting 102 mg/dL (60-99); Potassium 4.5 mmol/L (3.3-5.1); Sodium 138 mmol/L (135-145)
[2021-03-09] MEDS: Lactated Ringers 1,000 ML 100 ML IVCONT (12:31)
--- NOTE | 2021-03-09 14:46 | MHC.SHP ---
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 Relevant Social History: None Present Medications: see Short Stay Collaborative assessment Medical History: Significant History History of Previous Operations: Relevant previous surgery/procedure and date(s) Allergies: Allergies Allergy/AdvReac Type Severity Reaction Status Date / Time No Known Allergies Allergy Verified 02/17/21 12:01 Review of Systems Sugical H&P ROS: Negative: Constitution, Cardiovascular, Respiratory, Neurological, Psychiatric, Hem-Onc, Allergic/Immunologic, Gastrointestinal, Genitourinary, Musculoskeletal, Integumentary, Endocrine and Eyes/Ears/Nose/Throat Exam Surgical H&P Exam: Normal: HEENT, Normal: Heart, Normal: Lungs, Normal: Extremities, Normal: Abdomen, Normal: Skin and Normal: Neurological Plan Diagnosis/Plan: Unchanged (Left stent removal stent exchange, right retrograde stent placement) I have reviewed the history and physical and performed a pertinent physical examination on my patient. No changes have occurred unless specified.
[2021-03-09] MEDS: levoFLOXacin 500 MG TABLET PO (15:02)
[2021-03-09] MEDS: Acetaminophen 325 MG TABLET 650 MG PO (15:02)
--- NOTE | 2021-03-09 15:06 | PC.NURSE ---
md hall aware of new labs
--- NOTE | 2021-03-09 15:41 | P.OP_ITS ---
Operative Note Operative Note Date of Service: 03/09/21 Narrative: PreOperative Diagnosis: Bilateral ureteric stricture secondary to colon cancer treatment Post Operative Diagnosis: Same Procedure: 1. Cystoscopy with left retrograde, left stent removal left stent placement 2. Right retrograde with right ureteroscopy diagnostic Surgeon: Dr Corky Reveles Anesthesia: General Indications for procedure: 75-year-old male. Ureteric stricture secondary to treatment for colon cancer. Has indwelling left stent to be exchanged. Will examine right ureter. Recent CT scan describes chronic atrophic right kidney with mild hydronephrosis and left kidney with in place bilateral ureteric stent Procedure: After informed consent was verified the patient was brought to the operating room and placed in a supine position. Anesthesia was administered per protocol. Antibiotics being given. Twenty-two Bulgarian cystoscope inserted per urethra. No abnormality noted the anterior posterior urethra. Bladder was normal is entirety. Left ureteric orifice with stent visible. Sensor wire placed alongside stent. Open-ended catheter placed retrograde examination performed. Wire advanced up to the renal pelvis. The cystoscope was removed. Cystoscope replaced. Grasper used to remove left stent. The wire was backloaded through the cystoscope and a 6 Bulgarian by 26 cm double-J stent placed on the left side. On the right side retrograde examination performed. Full blockage seen in distal portion. Unable to pass angled Glidewire. Ureteroscopy performed. Blind-ending passage. Attempt to pass wire but no wire able to pass. This would indicate full stricture on the right side and is consistent with the chronic atrophic right kidney. He tolerated procedure well was extubated in operating room transferred in stable condition recovery area. Pathology: None Drains: Left 6 Bulgarian by 26 cm double-J stent
== END 2021-03-09 17:07 | disposition home or self-care (01) ==
PROVIDERS: Nurse Practitioner; PCP Internal Medicine Geriatric Medicine; Visit Provider Urology
PROC: (CPT 52332; principal; 2021-03-09 13:10)
DX: N13.1 Hydronephrosis with ureteral stricture, not elsewhere classified (principal); N99.89 Other postprocedural complications and disorders of genitourinary system; Z85.038 Personal history of other malignant neoplasm of large intestine; Z92.21 Personal history of antineoplastic chemotherapy; Z92.3 Personal history of irradiation; J45.909 Unspecified asthma, uncomplicated; F03.90 Unspecified dementia, unspecified severity, without behavioral disturbance, psychotic disturbance, mood disturbance, and anxiety; M19.90 Unspecified osteoarthritis, unspecified site; E78.00 Pure hypercholesterolemia, unspecified; Z90.49 Acquired absence of other specified parts of digestive tract; Z87.891 Personal history of nicotine dependence
CPT/HCPCS: 52332; 52351; 36415; 80048; 85027; C1758; C1769; C2617; J1100; J2405; J3010; Q9967

== ENCOUNTER → 2021-05-21 15:35 | Outpatient (BNVA) | payer MEDICARE, SELFPAY | PROVIDERS: PCP Internal Medicine Geriatric Medicine; Referring Provider Internal Medicine Geriatric Medicine; Visit Provider Nurse Practitioner | DX: K52.1 Toxic gastroenteritis and colitis (principal); T45.1X5D Adverse effect of antineoplastic and immunosuppressive drugs, subsequent encounter; Z85.038 Personal history of other malignant neoplasm of large intestine | CPT/HCPCS: 99212 ==

== ENCOUNTER → 2021-06-19 12:31 | Outpatient (BNVA) | payer MEDICARE, SELFPAY | PROVIDERS: PCP Internal Medicine Geriatric Medicine; Referring Provider Internal Medicine Geriatric Medicine; Visit Provider Nurse Practitioner | DX: K52.1 Toxic gastroenteritis and colitis (principal); R10.13 Epigastric pain | CPT/HCPCS: 99212 ==

== ENCOUNTER → 2021-07-10 13:59 | Outpatient (BNVA) | payer MEDICARE, SELFPAY | PROVIDERS: PCP Internal Medicine Geriatric Medicine; Visit Provider Urology | DX: N13.1 Hydronephrosis with ureteral stricture, not elsewhere classified (principal); Z85.038 Personal history of other malignant neoplasm of large intestine; Z92.21 Personal history of antineoplastic chemotherapy; Z92.3 Personal history of irradiation | CPT/HCPCS: 51798; 99212 ==

== ENCOUNTER → 2021-09-02 13:21 | Outpatient (BNVA) | payer OTHER, SELFPAY | PROVIDERS: PCP Internal Medicine Geriatric Medicine; Visit Provider Urology | DX: R35.1 Nocturia (principal); N13.1 Hydronephrosis with ureteral stricture, not elsewhere classified | CPT/HCPCS: Q3014 ==

== ENCOUNTER → 2021-09-07 11:40 | Day surgery (SDC) | payer OTHER, SELFPAY ==
[2021-09-01 14:46] VITALS: BMI 23.8
--- NOTE | 2021-09-04 12:59 | HO.ANESPROP2 ---
HPI - Anesthesia Eval Consult details Narrative: 76yo M for Left Cystoscopy & Stent Removal,retrograde right side, Cystoscopy & Stent Placement s/p Left stent exchange 03/2021 with GA-LMA 4 PMFSH Active Problems Active Problems: All Active Problems (Updated 05/21/21 @ 15:45 by ELLYN Arnold) BPH loc w urin obs/LUTS (Acute) Weak urinary stream (Acute) Nocturia more than twice per night (Acute) Hydronephrosis concurrent with and due to ureteral stricture (Acute) Constipation in male (Acute) Hemorrhoids (Acute) Irritable bowel syndrome with constipation (Acute) High cholesterol (Acute) HTN (hypertension), benign (Acute) Diarrhea due to drug (Acute) Epigastric pain (Acute) Colon cancer (Acute) History of colon cancer (Acute) Past Medical History Medical History Arthritis Asthma COVID-19 vaccine series completed Dementia Elevated cholesterol History of colon cancer Family History Family history of problems with anesthesia: No Surgical History Surgical History History of bowel resection Hx of colonoscopy Hx of cystoscopy Hx of cystoscopy Hx of cystoscopy History of Problems with Anesthesia: No Social History Social History Alcohol intake: never Patient Tobacco Use Status: Former Tobacco user Quit Date: 1990 Tobacco use type: Cigarette Meds Allergies Allergy/AdvReac Type Severity Reaction Status Date / Time No Known Allergies Allergy Verified 09/02/21 13:22 Home Medications Medication Instructions Recorded Confirmed Last Taken Type atorvastatin 20 mg tablet 20 mg PO DAILY 03/06/20 09/30/20 Unknown History donepezil 10 mg tablet 10 mg PO BEDTIME 03/06/20 09/30/20 Unknown History fluticasone 250 mcg-salmeterol 50 1 ea PO Q12H 03/06/20 09/30/20 03/17/20 History mcg/dose blistr powdr for inhalation furosemide 20 mg tablet 20 mg PO DAILY 03/06/20 09/30/20 Unknown History memantine 10 mg tablet 10 mg PO DAILY 03/06/20 09/30/20 Unknown History fluticasone 250 mcg-salmeterol 50 1 puff PO Q12H 03/11/20 09/30/20 03/17/20 History mcg/dose blistr powdr for inhalation (Rivera Navas) gabapentin 300 mg capsule 300 mg PO DAILY 10/27/20 Unknown History omeprazole 40 mg capsule,delayed 40 mg PO DAILY 10/27/20 Unknown History release diphenoxylate-atropine 2.5 0 tab PO 06/19/21 Unknown History mg-0.025 mg tablet oxycodone 5 mg tablet 0 mg PO 06/19/21 Unknown History fluticasone propionate 50 2 spray intranasal DAILY 07/10/21 Unknown History mcg/actuation nasal spray,suspension levofloxacin 750 mg tablet 750 mg PO Q OTHER DAY 07/10/21 Unknown History hyoscyamine sulfate 0.125 mg 0.125 mg PO Q4H PRN 09/02/21 Unknown History tablet (Levsin) lorazepam 0.5 mg tablet (Ativan) 0.5 mg PO Q4H PRN 09/02/21 Unknown History meclizine 25 mg tablet 25 mg PO DAILY PRN 09/02/21 Unknown History morphine concentrate 100 mg/5 mL 5 mg PO dyspnea 09/02/21 Unknown History (20 mg/mL) oral solution oxycodone 10 mg tablet 10 mg PO QID PRN pain 09/02/21 Unknown History Exam Exam Date and Time: September 04, 2021 1259 Height,Weight and Vital Signs: Height 5 ft 6 in Weight 67.132 kg Pertinent Lab Results Pertinent Lab Results: Laboratory Tests 03/09/21 03/09/21 12:08 12:08 WBC 7.4 Hgb 10.2 L Hct 32.2 L Plt Count 150 L Sodium 138 Potassium 4.5 Chloride 111 H Carbon Dioxide 18 L BUN 22 H Creatinine 1.64 H Assessment and Plan Assessment Anesthesia Assessment: Chart Reviewed Final Anesthetic Review Family History of Problems with Anesthesia: No History of Problems with Anesthesia: No
== END ==
PROVIDERS: PCP Internal Medicine Geriatric Medicine; Visit Provider Urology
DX: N13.1 Hydronephrosis with ureteral stricture, not elsewhere classified (principal); Z53.29 Procedure and treatment not carried out because of patient's decision for other reasons

== ENCOUNTER 2021-09-11 14:06 | Inpatient (IN) | payer MEDICARE, MEDICAID, SELFPAY ==
[2021-09-11] VITALS (8 sets, daily range): BP systolic 111–125; BP diastolic 51–56; PULSE 64–86; RESP 16–20; TEMP 36.2–37.2; O2SAT 96–99; BMI 18.5; BMI 19.9
--- NOTE | 2021-09-11 16:08 | ED_ITS ---
HPI - Male Genitourinary General Chief complaint: Urogenital-Male Stated complaint: trouble urinating Time Seen by Provider: 09/11/21 15:49 Source: patient Mode of arrival: ambulatory Limitations: language barrier (Burkinan-speaking electromedical equipment technician utilized) History of Present Illness HPI Narrative: Patient presents to the emergency department for evaluation of difficulty with urination and dark urine. Patient is being followed by Urology, Dr. Reveles. States he had a recent appointment, and was scheduled for days ago to have cystoscopy and exchange of his bilateral stents, however he reports that he waited in the office for 3 hours in could not wait any longer and therefore left without the procedure being performed. He contacted Dr. Reveles's office yesterday, and states he was advised to come to the emergency department so that cystoscopy may be performed. Denies fevers, chills, nausea, vomiting, abdominal pain, blood in the urine, flank pain. Related Data Home Medications Medication Instructions Recorded Confirmed fluticasone 250 mcg-salmeterol 50 1 ea PO Q12H 03/06/20 09/11/21 mcg/dose blistr powdr for inhalation hyoscyamine sulfate 0.125 mg 0.125 mg PO Q4H PRN Secretions 09/02/21 09/11/21 tablet (Levsin) meclizine 25 mg tablet 25 mg PO DAILY PRN Dizziness 09/02/21 09/11/21 morphine concentrate 100 mg/5 mL 5 mg PO Q1H PRN Dyspnea 09/02/21 09/11/21 (20 mg/mL) oral solution oxycodone 10 mg tablet 10 mg PO QID PRN pain 09/02/21 09/11/21 Allergies Allergy/AdvReac Type Severity Reaction Status Date / Time No Known Allergies Allergy Verified 09/11/21 14:21 Review of Systems Review of Systems: Constitutional: No weight loss, fever, chills, weakness or fatigue. Skin: No rash or itching. Cardiovascular: No chest pain, chest pressure or chest discomfort. No palpitations or pedal edema. Respiratory: No shortness of breath, cough or sputum production. Gastrointestinal: No anorexia, nausea, vomiting or diarrhea. No abdominal pain or blood in stool. Genitourinary: Positive urinary hesitancy. Positive retention. Musculoskeletal: No muscle pain, back pain, joint pain or stiffness. Psychiatric: No depression or anxiety. Yes all other systems are reviewed and are negative [facility] Past Medical History Attestation statement: The following information was validated with the patient. Source: old records reviewed Medical History Arthritis Asthma COVID-19 vaccine series completed Dementia Elevated cholesterol History of colon cancer Surgical History History of bowel resection Hx of colonoscopy Hx of cystoscopy Hx of cystoscopy Hx of cystoscopy Social History Social History Household Members: Family Housing: Apartment Do you presently have visiting nurse or other home services: Yes Alcohol intake: never Patient Tobacco Use Status: Former Tobacco user Quit Date: 1990 Tobacco use type: Cigarette Use of substances other than those prescribed or required for medical reasons: No Have you been hit, kicked, punched, or otherwise hurt by someone within the past year? If so, by whom?: No Do you feel safe in your current relationship?: No Is there a partner from a previous relationship who is making you feel unsafe now?: No Are you made to feel afraid or neglected: No Advance Directives: Yes Advance Directives Information Provided: No Advance Directives on File: No Advance Directives Date on File: 09/11/21 Do you have thoughts of harming others: None Do you have a plan to hurt others: No Plan Recently lost weight without trying: Yes How much weight loss: 34pounds or more Eating poorly because of decreased appetite: Yes Nutrition screen score: 7 Nutrition Risks: Recent weight gain Physical Exam Vital Signs: Vital Signs: Last Vital Signs Temp 99 F 09/11/21 20:30 Pulse 64 09/11/21 20:30 Resp 16 09/11/21 20:30 BP 120/56 L 09/11/21 20:30 Pulse Ox 98 09/11/21 20:30 O2 Del Method 09/11/21 20:30 BMI result Body Mass Index 18.5 Appearance: Alert.?Oriented to person, place and time. No acute distress.?Normal affect. Eyes: Pupils equal, round and reactive to light.? ENT: Pharynx normal.?? Neck: Normal inspection.? Neck supple.?? CVS: Heart sounds normal. Normal heart rate and rhythm.? Pulses normal.?? Respiratory: No respiratory distress.? Lung sounds clear to auscultation bilaterally?? Abdomen: Soft and non-tender. Normoactive bowel sounds. No pulsatile mass.? No CVA tenderness? Skin: Skin warm and dry.? Normal skin color.? Extremities: No lower extremity edema.? Neuro: Moves all extremities spontaneously. Sensation intact bilaterally. No motor deficits. Ambulates with normal steady gait. Course Course Course Narrative: Patient is a 76-year-old male with a past medical history of colon cancer, hypertension, hyperlipidemia, IBS, bilateral hydronephrosis with bilateral stents secondary to colorectal procedures, and ureteral stricture. Patient was last seen by his urologist Dr. Reveles 09/02/2021, is scheduled to have cystoscopy with left stent removal and stent exchange on 09/07/2021 for issues of poor but after waiting 3 hours a day to the left seizures. He is continuing to have difficulty voiding, sensation of incomplete emptying of the bladder, and dark urine. Symptoms are worsening therefore he contacted Urology yesterday, and reportedly was advised to come to the emergency department so that was determined be arranged. Will obtain CBC, CMP, urinalysis, PVR bladder scan. Will contact patient's urologist Dr. Reveles to consult, to discuss if the patient is retaining whether Blanchard catheter is to be inserted, or whether any recommendations for imaging studies. He is overall well appearing, vital signs are stable. Afebrile. Benign abdominal exam no CVA tenderness. Reevaluation(s) Reevaluation #1: Spoke with Dr. Reveles, concern for infected stent. At this time will obtain blood cultures in addition to lactic acid, and will cover with IV Rocephin. Patient has not had anything to eat or drink today. Patient to go for cystoscopy and stent exchange this evening. No retention on bladder scan, Blanchard catheter not to be inserted at this time. Discussed plan of care with patient and family, they're agreeable. Time: 16:21 Reevaluation #2: CBC reveals a normocytic anemia with hemoglobin 8.7 hematocrit 26.7 and 2.1 compared to February 2021, no reports of active bleeding. Labs consistent with JOANA BUN [address] Reveles made aware, requesting hospitalist consult at this time, order placed in computer sent message to hospitalist, Dr. Brady. Time: 17:42 MDM - Male Genitourinary Medical Records Attestation: I reviewed the patient's medical records. Lab Data Result diagrams: 09/11/21 16:44 09/11/21 16:44 Labs: Lab Results 09/11/21 09/11/21 09/11/21 Range/Units 16:44 16:44 16:44 WBC 4.8 (4.8-10.8) X10*3/uL RBC 2.80 L (4.60-5.80) X10*6/uL Hgb 8.7 L (14.0-18.0) g/dl Hct 26.7 L (42.0-52.0) % MCV 95.4 (80.0-98.0) fL MCH 31.1 (27.0-33.0) pg MCHC 32.6 (31.0-36.0) g/dl RDW 15.4 (11.0-16.0) % Plt Count 172 (160-400) X10*3/uL MPV 10.9 (9.4-12.4) fL Immature Gran % (Auto) 0.2 (0.0-0.4) % Neut % (Auto) 65.0 (45-73) % Lymph % (Auto) 23.2 (20-40) % [place] % (Auto) 10.6 (2-11) % Eos % (Auto) 0.6 (0-4) % Baso % (Auto) 0.4 (0-2) % Lymph # (Auto) 1.1 L (1.2-4.9) X10*3/uL [place] # (Auto) 0.5 (0.1-1.2) X10*3/uL Eos # (Auto) 0.0 (0.0-0.4) X10*3/uL Baso # (Auto) 0.0 (0.0-0.2) X10*3/uL Abs Immat Gran (auto) 0.01 (0.00-0.03) X10*3/uL Absolute Neuts (auto) 3.1 (2.0-8.3) x10*3/uL Absolute Nucleated RBC 0.000 (0.0-0.012) X10*3/uL Nucleated RBC % (auto) 0.0 (0.0-0.2) /100WBC Sodium 137 (135-145) mmol/L Potassium 4.9 (3.3-5.1) mmol/L Chloride 111 H (96-108) mmol/L Carbon Dioxide 14 L (22-29) mmol/L Anion Gap 17 (12-20) BUN 48 H D (9-16) mg/dL Creatinine 3.57 H (0.5-1.4) mg/dL Estim Creat Clear Calc 12.5 Estimated GFR 17 Random Glucose 122 H (60-115) mg/dL Lactic Acid (0.5-2.0) mmol/L Calcium 8.9 (8.4-10.2) mg/dL Total Bilirubin 0.7 (0.0-1.0) mg/dL AST 10 (5-37) U/L ALT 6 (0-40) U/L Alkaline Phosphatase 83 (39-117) U/L Total Protein 7.1 (6.5-8.0) g/dL Albumin 3.9 (3.5-5.0) g/dL Urine Color YELLOW Urine Appearance HAZY Urine pH 5.5 (5.0-8.0) Ur Specific [place] 1.025 (1.005-1.025) Urine Protein 1+ H (NEG-TRACE) MG/DL Urine Glucose (UA) NEG (NEG) MG/DL Urine Ketones NEG (NEG) MG/DL Urine Blood 3+ H (NEG) Urine Nitrite NEG (NEG) Ur Leukocyte Esterase 1+ H (NEG) Urine RBC TNTC H (0) /HPF Urine WBC 15-29 H (0-4) /HPF Ur Squamous Epith Cells 2+ /LPF Ur Renal Epithelial Cell TRACE /LPF Urine Bacteria 1+ /LPF Hyaline Casts 0-2 /LPF 09/11/21 Range/Units 16:44 WBC (4.8-10.8) X10*3/uL RBC (4.60-5.80) X10*6/uL Hgb (14.0-18.0) g/dl Hct (42.0-52.0) % MCV (80.0-98.0) fL MCH (27.0-33.0) pg MCHC (31.0-36.0) g/dl RDW (11.0-16.0) % Plt Count (160-400) X10*3/uL MPV (9.4-12.4) fL Immature Gran % (Auto) (0.0-0.4) % Neut % (Auto) (45-73) % Lymph % (Auto) (20-40) % [place] % (Auto) (2-11) % Eos % (Auto) (0-4) % Baso % (Auto) (0-2) % Lymph # (Auto) (1.2-4.9) X10*3/uL [place] # (Auto) (0.1-1.2) X10*3/uL Eos # (Auto) (0.0-0.4) X10*3/uL Baso # (Auto) (0.0-0.2) X10*3/uL Abs Immat Gran (auto) (0.00-0.03) X10*3/uL Absolute Neuts (auto) (2.0-8.3) x10*3/uL Absolute Nucleated RBC (0.0-0.012) X10*3/uL Nucleated RBC % (auto) (0.0-0.2) /100WBC Sodium (135-145) mmol/L Potassium (3.3-5.1) mmol/L Chloride (96-108) mmol/L Carbon Dioxide (22-29) mmol/L Anion Gap (12-20) BUN (9-16) mg/dL Creatinine (0.5-1.4) mg/dL Estim Creat Clear Calc Estimated GFR Random Glucose (60-115) mg/dL Lactic Acid 0.9 (0.5-2.0) mmol/L Calcium (8.4-10.2) mg/dL Total Bilirubin (0.0-1.0) mg/dL AST (5-37) U/L ALT (0-40) U/L Alkaline Phosphatase (39-117) U/L Total Protein (6.5-8.0) g/dL Albumin (3.5-5.0) g/dL Urine Color Urine Appearance Urine pH (5.0-8.0) Ur Specific [place] (1.005-1.025) Urine Protein (NEG-TRACE) MG/DL Urine Glucose (UA) (NEG) MG/DL Urine Ketones (NEG) MG/DL Urine Blood (NEG) Urine Nitrite (NEG) Ur Leukocyte Esterase (NEG) Urine RBC (0) /HPF Urine WBC (0-4) /HPF Ur Squamous Epith Cells /LPF Ur Renal Epithelial Cell /LPF Urine Bacteria /LPF Hyaline Casts /LPF Discharge Plan Discharge Clinical Impression: Acute kidney injury, Hydronephrosis concurrent with and due to ureteral stricture, BPH loc w urin obs/LUTS Patient Disposition: Admitted As Inpatient Interventions: Admission Worksheet (ED) Last Done: 09/11/21 17:45
[2021-09-11] MEDS: cefTRIAXone sodium 1 GM in 0.9 % Sodium Chloride 50 ML IV (16:38)
--- NOTE | 2021-09-11 16:40 | PC.NURSE ---
patient assessed with raw scales operator . a/o x4 . pearrla . lungs clear .skin pink warm and dry . heart rat regular at 67 . abdomen soft . non tender . patient reports at times of difficulty completely fully emptying bladder . post void bladder scan done . provider aware . IV placed in left forearm . labs sent . antibiotics hung . plan for patient to go to OR for possible stent replacement by Dr Boone this evening . patient and family aware of plan of care .
[2021-09-11 16:57] LABS: MANUAL DIFF FLAG NO
[2021-09-11 17:00] LABS: Basophils Percent Auto 0.4 % (0-2); Eosinophils Percent Auto 0.6 % (0-4); Hematocrit 26.7 % (42.0-52.0); Hemoglobin 8.7 g/dl (14.0-18.0); Imm Gran Abs Auto 0.01 X10*3/uL (0.00-0.03); Imm Gran Pct Auto 0.2 % (0.0-0.4); Lymphocytes Absolute Auto 1.1 X10*3/uL (1.2-4.9); Lymphocytes Percent Auto 23.2 % (20-40); Mean Corpuscular HGB Conc 32.6 g/dl (31.0-36.0); Mean Corpuscular Hemoglobin 31.1 pg (27.0-33.0); Mean Corpuscular Volume 95.4 fL (80.0-98.0); Mean Platelet Volume 10.9 fL (9.4-12.4); Monocytes Absolute Auto 0.5 X10*3/uL (0.1-1.2); Monocytes Percent Auto 10.6 % (2-11); Neutrophils Absolute Auto 3.1 x10*3/uL (2.0-8.3); Platelet Count 172 X10*3/uL (160-400); Red Cell Distribution Width 15.4 % (11.0-16.0); White Blood Count 4.8 X10*3/uL (4.8-10.8)
[2021-09-11 17:05] LABS: Appearance Urine HAZY; Color Urine YELLOW; Glucose Urine UA NEG (NEG); Leukocyte Esterase Urine 1+ (NEG); Nitrite Urine NEG (NEG); PH 5.5 (5.0-8.0); Specific Gravity - Urine 1.025 (1.005-1.025); UACC Culture Trigger YES; Urine Blood 3+ (NEG); Urine Ketones NEG (NEG); Urine Protein 1+ MG/DL (NEG-TRACE)
[2021-09-11 17:10] LABS: Lactic Acid 0.9 mmol/L (0.5-2.0)
[2021-09-11 17:17] LABS: Alanine Aminotransferase 6 U/L (0-40); Albumin Level 3.9 g/dL (3.5-5.0); Alkaline Phosphatase 83 U/L (39-117); Anion Gap 17 (12-20); Aspartate Amino Transferase 10 U/L (5-37); Bilirubin Total 0.7 mg/dL (0.0-1.0); Blood Urea Nitrogen 48 mg/dL (9-16); Calcium 8.9 mg/dL (8.4-10.2); Carbon Dioxide 14 mmol/L (22-29); Chloride 111 mmol/L (96-108); Creatinine Clr Calc Pharmacy 12.5; Estimated Glomerular Filt Rate 17; Glucose Random 122 mg/dL (60-115); Potassium 4.9 mmol/L (3.3-5.1); Sodium 137 mmol/L (135-145); Total Protein 7.1 g/dL (6.5-8.0)
--- NOTE | 2021-09-11 18:04 | PC.NURSE ---
report given to RN . patient transported to PACU .
[2021-09-11 18:06] LABS: COVID-19 Test Negative (Negative); IDNOW Serial# 16C4AD1C
--- NOTE | 2021-09-11 18:09 | PM.HPGS ---
History of Present Illness History of Present Illness Date of Service: 09/11/21 Chief complaint: trouble urinating Narrative: Alejandro Gayle is a 76 year old male Presents to emergency room with left-sided flank pain and bladder discomfort. Has indwelling stent on left side. This was placed initially and is changed secondary to scarring following radiation therapy for colorectal cancer. Creatinine found to be 43.6, hematocrit 26 - baseline creatinine from February 07. Antibiotics given in emergency room Plan for stent exchange in operating room Review of Systems Constitutional: Constitutional: Denies chills and Denies fever(s) Cardiovascular: Cardiovascular: Reports no additional cardiovascular complaints and Denies syncope Respiratory: Respiratory: Denies cough Gastrointestinal: Gastrointestinal: Denies abdominal pain and Denies heartburn Genitourinary: Genitourinary: Reports as per HPI and Denies change in libido Neurologic: Denies syncope Psychiatric: Psychiatric: Denies change in libido Endocrine: Endocrine: Denies change in libido PMFSH Past Medical History Medical History Arthritis Asthma COVID-19 vaccine series completed Dementia Elevated cholesterol History of colon cancer Surgical History Surgical History History of bowel resection Hx of colonoscopy Hx of cystoscopy Hx of cystoscopy Hx of cystoscopy Social History Social History Alcohol intake: never Patient Tobacco Use Status: Former Tobacco user Quit Date: 1990 Tobacco use type: Cigarette Advance Directives: Yes Advance Directives Information Provided: No Advance Directives on File: No Meds Allergies Allergy/AdvReac Type Severity Reaction Status Date / Time No Known Allergies Allergy Verified 09/11/21 14:21 Active Medications: Current Medications Sodium Chloride (0.9 % Sodium Chloride Flush 3 Ml Syringe) [facility] Home Medications Medication Instructions Recorded Confirmed Last Taken Type atorvastatin 20 mg tablet 20 mg PO DAILY 03/06/20 09/30/20 Unknown History donepezil 10 mg tablet 10 mg PO BEDTIME 03/06/20 09/30/20 Unknown History fluticasone 250 mcg-salmeterol 50 1 ea PO Q12H 03/06/20 09/30/20 03/17/20 History mcg/dose blistr powdr for inhalation furosemide 20 mg tablet 20 mg PO DAILY 03/06/20 09/30/20 Unknown History memantine 10 mg tablet 10 mg PO DAILY 03/06/20 09/30/20 Unknown History fluticasone 250 mcg-salmeterol 50 1 puff PO Q12H 03/11/20 09/30/20 03/17/20 History mcg/dose blistr powdr for inhalation ([facility]a [facility]as) gabapentin 300 mg capsule 300 mg PO DAILY 10/27/20 Unknown History omeprazole 40 mg capsule,delayed 40 mg PO DAILY 10/27/20 Unknown History release diphenoxylate-atropine 2.5 0 tab PO 06/19/21 Unknown History mg-0.025 mg tablet oxycodone 5 mg tablet 0 mg PO 06/19/21 Unknown History fluticasone propionate 50 2 spray intranasal DAILY 07/10/21 Unknown History mcg/actuation nasal spray,suspension levofloxacin 750 mg tablet 750 mg PO Q OTHER DAY 07/10/21 Unknown History hyoscyamine sulfate 0.125 mg 0.125 mg PO Q4H PRN 09/02/21 Unknown History tablet (Levsin) lorazepam 0.5 mg tablet (Ativan) 0.5 mg PO Q4H PRN 09/02/21 Unknown History meclizine 25 mg tablet 25 mg PO DAILY PRN 09/02/21 Unknown History morphine concentrate 100 mg/5 mL 5 mg PO dyspnea 09/02/21 Unknown History (20 mg/mL) oral solution oxycodone 10 mg tablet 10 mg PO QID PRN pain 09/02/21 Unknown History Physical Exam Vital Signs: Vital Signs: Last Vital Signs Temp 98.6 F 09/11/21 17:56 Pulse 64 09/11/21 17:56 Resp 20 09/11/21 17:56 BP 118/52 L 09/11/21 17:56 Pulse Ox 96 09/11/21 17:56 O2 Del Method 09/11/21 17:56 BMI result Body Mass Index 18.5 Const: General: cooperative, healthy appearing, comfortable and no acute distress Orientation/consciousness: patient oriented x3 HEENT: Face and sinus: Yes normal facial exam Mouth: moist mucous membranes Neck: Neck: Yes normal visual inspection, Yes full ROM and Yes trachea midline Chest: Chest palpation & inspection: normal inspection of the chest Resp: Effort & Inspection: normal respiratory effort, able to speak in complete sentences and no respiratory distress GI: Inspection: Yes normal to inspection Back/Spine/Pelvis: Cervical Spine: normal cervical lordosis Thoracic/Lumbar Spine: thoracic and lumbar spine normal to inspection Skin: General skin exam: no rashes or lesions noted Neuro: General: patient oriented x3, gait normal, tone normal and moves all extremities Extrem: General: Yes normal to inspection and Yes capillary refill normal Results Results Labs: Short CBC 09/11/21 Range/Units 16:44 WBC 4.8 (4.8-10.8) X10*3/uL Hgb 8.7 L (14.0-18.0) g/dl Hct 26.7 L (42.0-52.0) % Plt Count 172 (160-400) X10*3/uL BMP 09/11/21 16:44 Sodium 137 Potassium 4.9 Chloride 111 H Carbon Dioxide 14 L BUN 48 H D Creatinine 3.57 H Calcium 8.9 Liver Function 09/11/21 Range/Units 16:44 Total Bilirubin 0.7 (0.0-1.0) mg/dL AST 10 (5-37) U/L ALT 6 (0-40) U/L Alkaline Phosphatase 83 (39-117) U/L Albumin 3.9 (3.5-5.0) g/dL Urine 09/11/21 Range/Units 16:44 Urine Color YELLOW Urine Appearance HAZY Urine pH 5.5 (5.0-8.0) Ur Specific [place] 1.025 (1.005-1.025) Urine Protein 1+ H (NEG-TRACE) MG/DL Urine Glucose (UA) NEG (NEG) MG/DL Assessment and Plan (1) BPH loc w urin obs/LUTS: Status: Acute (2) Hydronephrosis concurrent with and due to ureteral stricture: Status: Acute Plan Risks, benefits and alternatives to therapy were discussed. These include but are not limited to infection, bleeding, damage to local organs and tissues, need for further interventions. Anesthetic risks regarding cardiac arrhythmia, blood clots, and potential mortality were discussed. The patient understands the typical recovery time and the outpatient nature of the procedure. After consideration of these risks the patient gives full informed consent and they wish to move ahead with the procedure. Cystoscopy left stent exchange Quality Stroke Does the patient have a stroke diagnosis?: No VTE Prior VTE?: No VTE Risk Level:: Surgical - moderate VTE Device Contraindication: Treatment Not Indicated VTE Drug Contraindication: Treatment Not Indicated Procedures Date of Service Date of Service: 09/11/21
[2021-09-11 18:30] LABS: RBC Urine TNTC /HPF (0)
[2021-09-11 18:31] LABS: Bacteria Urine 1+ /LPF; Hyaline Casts Urine 0-2 /LPF; Renal Epithelial Cells Urine TRACE /LPF; Squamous Epithelial Cell Urine 2+ /LPF
--- NOTE | 2021-09-11 18:33 | PHA.MEDREC ---
Pharmacy Consult ? Medication Reconciliation Pharmacy has completed the medication reconciliation. Spoke to daughter Queta. Patient is now on Hospice and had discussion with provider to d/c all meds but the ones I put in. Only maintanence med is wixela. Per daughter they have not had to use the morphine concentrate . Thanks Bobby
--- NOTE | 2021-09-11 18:57 | HO.ANESPROP2 ---
[facility] Active Problems Active Problems: All Active Problems (Updated 05/21/21 @ 15:45 by ELLYN Arnold) BPH loc w urin obs/LUTS (Acute) Weak urinary stream (Acute) Nocturia more than twice per night (Acute) Hydronephrosis concurrent with and due to ureteral stricture (Acute) Constipation in male (Acute) Hemorrhoids (Acute) Irritable bowel syndrome with constipation (Acute) High cholesterol (Acute) HTN (hypertension), benign (Acute) Diarrhea due to drug (Acute) Epigastric pain (Acute) Colon cancer (Acute) History of colon cancer (Acute) Past Medical History Medical History Arthritis Asthma COVID-19 vaccine series completed Dementia Elevated cholesterol History of colon cancer Functional capacity: independent ambulation Family History Family history of problems with anesthesia: No Surgical History Surgical History History of bowel resection Hx of colonoscopy Hx of cystoscopy Hx of cystoscopy Hx of cystoscopy History of Problems with Anesthesia: No Social History Social History Alcohol intake: never Patient Tobacco Use Status: Former Tobacco user Quit Date: 1990 Tobacco use type: Cigarette Advance Directives: Yes Advance Directives Information Provided: No Advance Directives on File: No Meds Allergies Allergy/AdvReac Type Severity Reaction Status Date / Time No Known Allergies Allergy Verified 09/11/21 14:21 Active Medications: Current Medications Pharmacy Consult (Consult Rx Perform Med Rec) 1 each MISCELLANE ONCE PRN PRN Reason: Consult order Sodium Chloride (0.9 % Sodium Chloride Flush 3 Ml Syringe) [facility] Medic[facility] Medication Instructions Recorded Confirmed Last Taken Type fluticasone 250 mcg-salmeterol 50 1 ea PO Q12H 03/06/20 09/11/21 09/11/21 History mcg/dose blistr powdr for inhalation hyoscyamine sulfate 0.125 mg 0.125 mg PO Q4H PRN Secretions 09/02/21 09/11/21 09/11/21 History tablet (Levsin) meclizine 25 mg tablet 25 mg PO DAILY PRN Dizziness 09/02/21 09/11/21 09/11/21 History morphine concentrate 100 mg/5 mL 5 mg PO Q1H PRN Dyspnea 09/02/21 09/11/21 Unknown History (20 mg/mL) oral solution oxycodone 10 mg tablet 10 mg PO QID PRN pain 09/02/21 09/11/21 09/11/21 History Exam Exam Date and Time: September 11, 2021 185 Height,Weight and Vital Signs: Height 5 ft 5.98 in Weight 52 kg Last Vital Signs Temp 98.6 F 09/11/21 17:56 Pulse 64 09/11/21 17:56 Resp 20 09/11/21 17:56 BP 118/52 L 09/11/21 17:56 Pulse Ox 96 09/11/21 17:56 O2 Del Method 09/11/21 17:56 Pertinent Lab Results Pertinent Lab Results: Laboratory Tests 09/11/21 09/11/21 09/11/21 16:44 16:44 16:44 WBC 4.8 RBC 2.80 L Hgb 8.7 L Hct 26.7 L MCV 95.4 MCH 31.1 MCHC 32.6 RDW 15.4 Plt Count 172 MPV 10.9 Immature Gran % (Auto) 0.2 Neut % (Auto) 65.0 Lymph % (Auto) 23.2 [place] % (Auto) 10.6 Eos % (Auto) 0.6 Baso % (Auto) 0.4 Lymph # (Auto) 1.1 L [place] # (Auto) 0.5 Eos # (Auto) 0.0 Baso # (Auto) 0.0 Abs Immat Gran (auto) 0.01 Absolute Neuts (auto) 3.1 Absolute Nucleated RBC 0.000 Nucleated RBC % (auto) 0.0 Sodium 137 Potassium 4.9 Chloride 111 H Carbon Dioxide 14 L Anion Gap 17 BUN 48 H D Creatinine 3.57 H Estim Creat Clear Calc 12.5 Estimated GFR 17 Random Glucose 122 H Lactic Acid Calcium 8.9 Total Bilirubin 0.7 AST 10 ALT 6 Alkaline Phosphatase 83 Total Protein 7.1 Albumin 3.9 Urine Color YELLOW Urine Appearance HAZY Urine pH 5.5 Ur Specific [place] 1.025 Urine Protein 1+ H Urine Glucose (UA) NEG Urine Ketones NEG Urine Blood 3+ H Urine Nitrite NEG Ur Leukocyte Esterase 1+ H Urine RBC TNTC H Urine WBC 15-29 H Ur Squamous Epith Cells 2+ Ur Renal Epithelial Cell TRACE Urine Bacteria 1+ Hyaline Casts 0-2 COVID-19 ([facility]) COVID-19 Clin Com 09/11/21 09/11/21 16:44 17:40 WBC RBC Hgb Hct MCV MCH MCHC RDW Plt Count MPV Immature Gran % (Auto) Neut % (Auto) Lymph % (Auto) [place] % (Auto) Eos % (Auto) Baso % (Auto) Lymph # (Auto) [place] # (Auto) Eos # (Auto) Baso # (Auto) Abs Immat Gran (auto) Absolute Neuts (auto) Absolute Nucleated RBC Nucleated RBC % (auto) Sodium Potassium Chloride Carbon Dioxide Anion Gap BUN Creatinine Estim Creat Clear Calc Estimated GFR Random Glucose Lactic Acid 0.9 Calcium Total Bilirubin AST ALT Alkaline Phosphatase Total Protein Albumin Urine Color Urine Appearance Urine pH Ur Specific [place] Urine Protein Urine Glucose (UA) Urine Ketones Urine Blood Urine Nitrite Ur Leukocyte Esterase Urine RBC Urine WBC Ur Squamous Epith Cells Ur Renal Epithelial Cell Urine Bacteria Hyaline Casts COVID-19 ([facility]) Negative COVID-19 Clin Com See Note Airway Mallampati Class: II TM Dist: >3cm Neck ROM: Full Heart: RRR Lungs: CTA Assessment and Plan Final Anesthetic Review Family History of Problems with Anesthesia: No History of Problems with Anesthesia: No ASA Class: III and Emergency Final Preanesthetic Review: No Changes in Pt Med Stat, Meds/Allgs Chart Reviewed, Consent Obtained/Reviewed and Anes Risks/Benef Reviewed Patient Risk: Low Procedure Risk: Low Anesthetic Plan Anesthetic Plan: GA Disposition: Standard PACU
--- NOTE | 2021-09-11 19:55 | W.PM.OPN ---
Operative Note Operative Note Date of Service: 09/11/21 Narrative: PreOperative Diagnosis: left stent obstruction Post Operative Diagnosis: left stent obstruction, right ureteric orifice tumor Procedure: 1. Cystoscopy with left stent removal 2. Left retrograde 3. Left stent placement 4. right retrograde 5. Right ureteric biopsy Surgeon: Dr Corky Reveles Anesthesia: sedation Indications for procedure: elevated creatinine from block stent Procedure: After informed consent was verified the patient was brought to the operating room and placed in a supine position. Anesthesia was administered per protocol. The patient was placed in modified dorsal lithotomy position and prepped and draped in a sterile fashion. A safety pause time-out was performed. Laterality of procedure and antibiotics were confirmed. appropriate imaging was available A 22 [place] cystoscope was introduced per urethra. No abnormality was noted. Both ureteric orifices were seen in a normal position. stent was coming out from left ureter. Guidewire was placed alongside the stent. The stent was removed. An open-ended catheter was placed and the renal pelvis irrigated with retrograde examination. Debris was flushed from the ureter. The scope was removed. A 7 [place] by 26 cm double-J stent was backloaded and placed into the left ureteric orifice. A right ureteric orifice was examined in retrograde examination performed. Filling defects seen in distal portion of the right ureter and the orifice was stenosis. No dye was found going proximal. Using a flat wire basket we biopsied the tumor emerging from the distal tip to the right ureter. This will be sent for examination. The patient tolerated the procedure well and was transferred in stable condition to the recovery area. Pathology: Ureteric biopsy Drains: 7 [place] by 26 cm double-J stent
[2021-09-11] MEDS: Phenazopyridine HCL 100 MG TABLET PO (22:12)
[2021-09-11] MEDS: 0.9 % Sodium Chloride 1,000 ML 100 ML IVCONT (22:12)
[2021-09-11] MEDS: 0.9 % Sodium Chloride Flush 3 ML SYRINGE IVFLUSH (22:15)
--- NOTE | 2021-09-11 23:35 | P.CONHOSP_ITS ---
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 Patient follows with Dr. Reveles for regular stent exchange. Patient was planned for cystoscopy on coming Tuesday but noted to have difficulty urination; subsequently came to the ER for further evaluation. Patient was taken to the OR from the ER and had stent exchanged. Admitted to the urology service. Medicine team was consulted for abnormal urinalysis consistent with UTI as well as noted to have JOANA. Patient denies any abdominal pain, fever chills cough. Denies any chest pain or palpitations. Denies any hematuria. Denies any cough or shortness of breath. Review of all other systems is negative except mentioned [facility] Medical History Arthritis Asthma COVID-19 vaccine series completed Dementia Elevated cholesterol History of colon cancer Functional capacity: independent ambulation Surgical History History of bowel resection Hx of colonoscopy Hx of cystoscopy Hx of cystoscopy Hx of cystoscopy Social History Household Members: Family Housing: Apartment Do you presently have visiting nurse or other home services: Yes Alcohol intake: never Patient Tobacco Use Status: Former Tobacco user Quit Date: 1990 Tobacco use type: Cigarette Use of substances other than those prescribed or required for medical reasons: No Have you been hit, kicked, punched, or otherwise hurt by someone within the past year? If so, by whom?: No Do you feel safe in your current relationship?: No Is there a partner from a previous relationship who is making you feel unsafe now?: No Are you made to feel afraid or neglected: No Advance Directives: Yes Advance Directives Information Provided: No Advance Directives on File: No Advance Directives Date on File: 09/11/21 Do you have thoughts of harming others: None Do you have a plan to hurt others: No Plan Recently lost weight without trying: Yes How much weight loss: 34pounds or more Eating poorly because of decreased appetite: Yes Nutrition screen score: 7 Nutrition Risks: Recent weight gain Meds Allergies Allergy/AdvReac Type Severity Reaction Status Date / Time No Known Allergies Allergy Verified 09/11/21 14:21 Active Medications: Current Medications Fentanyl (Fentanyl Citrate/Pf 100 Mcg/2 Ml Vial) 25 mcg IVPUSH Q5M PRN; Protocol PRN Reason: Pain, Moderate (Pain Scale 4-6 Sodium Chloride (Ns) 1,000 mls @ 100 mls/hr IVCONT .Q10H [facility] Last Admin: 09/11/21 22:12 Dose: 100 mls/hr Ceftriaxone Sodium 1 gm/ (Sodium Chloride) 50 mls @ 100 mls/hr IV Q24H [facility] Meclizine HCl (Meclizine Hcl 25 Mg Tablet) 25 mg PO DAILY PRN PRN Reason: Dizziness Ondansetron HCl (Ondansetron Hcl 4 Mg/2 Ml Vial) 4 mg IVPUSH ONCE PRN PRN Reason: Nausea and Vomiting Pharmacy Consult (Consult Rx Perform Med Rec) 1 each MISCELLANE ONCE PRN PRN Reason: Consult order Sodium Chloride (0.9 % Sodium Chloride Flush 3 Ml Syringe) 3 ml IVFLUSH QSHIFT [facility] Last Admin: 09/11/21 22:15 Dose: 3 ml Home Medications Medication Instructions Recorded Confirmed Last Taken Type fluticasone 250 mcg-salmeterol 50 1 ea PO Q12H 03/06/20 09/11/21 09/11/21 History mcg/dose blistr powdr for inhalation hyoscyamine sulfate 0.125 mg 0.125 mg PO Q4H PRN Secretions 09/02/21 09/11/21 09/11/21 History tablet (Levsin) meclizine 25 mg tablet 25 mg PO DAILY PRN Dizziness 09/02/21 09/11/21 09/11/21 History morphine concentrate 100 mg/5 mL 5 mg PO Q1H PRN Dyspnea 09/02/21 09/11/21 Unknown History (20 mg/mL) oral solution oxycodone 10 mg tablet 10 mg PO QID PRN pain 09/02/21 09/11/21 09/11/21 History Physical Exam Vital Signs and Narrative: Vital Signs: Last Vital Signs Temp 99 F 09/11/21 20:30 Pulse 64 09/11/21 20:30 Resp 16 09/11/21 20:30 BP 120/56 L 09/11/21 20:30 Pulse Ox 98 09/11/21 20:30 O2 Del Method 09/11/21 20:30 BMI result Body Mass Index 19.9 Gen: Appears be in no acute distress HEENT: NCAT, Moist mucosa. Pulmonary: Vesicular breath sounds, fair air entry CVS: Normal S1-S2 Abdomen: BS+, Soft, Nontender Extremities: Warm well perfused Neuro: Alert and awake. Results Labs CBC and Chem 7: 09/11/21 16:44 09/11/21 16:44 Labs: Laboratory Results - last 24 hr 09/11/21 09/11/21 09/11/21 16:44 16:44 16:44 MCV 95.4 MCH 31.1 MCHC 32.6 RDW 15.4 Plt Count 172 MPV 10.9 Immature Gran % (Auto) 0.2 Neut % (Auto) 65.0 Lymph % (Auto) 23.2 [place] % (Auto) 10.6 Eos % (Auto) 0.6 Baso % (Auto) 0.4 Lymph # (Auto) 1.1 L [place] # (Auto) 0.5 Eos # (Auto) 0.0 Baso # (Auto) 0.0 Abs Immat Gran (auto) 0.01 Absolute Neuts (auto) 3.1 Absolute Nucleated RBC 0.000 Nucleated RBC % (auto) 0.0 Anion Gap 17 Estim Creat Clear Calc 12.5 Estimated GFR 17 Random Glucose 122 H Lactic Acid Calcium 8.9 Total Bilirubin 0.7 AST 10 ALT 6 Alkaline Phosphatase 83 Total Protein 7.1 Albumin 3.9 Urine Color YELLOW Urine Appearance HAZY Urine pH 5.5 Ur Specific [place] 1.025 Urine Protein 1+ H Urine Glucose (UA) NEG Urine Ketones NEG Urine Blood 3+ H Urine Nitrite NEG Ur Leukocyte Esterase 1+ H Urine RBC TNTC H Urine WBC 15-29 H Ur Squamous Epith Cells 2+ Ur Renal Epithelial Cell TRACE Urine Bacteria 1+ Hyaline Casts 0-2 COVID-19 ([facility]I) COVID-19 Clin Com 09/11/21 09/11/21 16:44 17:40 MCV MCH MCHC RDW Plt Count MPV Immature Gran % (Auto) Neut % (Auto) Lymph % (Auto) [place] % (Auto) Eos % (Auto) Baso % (Auto) Lymph # (Auto) [place] # (Auto) Eos # (Auto) Baso # (Auto) Abs Immat Gran (auto) Absolute Neuts (auto) Absolute Nucleated RBC Nucleated RBC % (auto) Anion Gap Estim Creat Clear Calc Estimated GFR Random Glucose Lactic Acid 0.9 Calcium Total Bilirubin AST ALT Alkaline Phosphatase Total Protein Albumin Urine Color Urine Appearance Urine pH Ur Specific [place] Urine Protein Urine Glucose (UA) Urine Ketones Urine Blood Urine Nitrite Ur Leukocyte Esterase Urine RBC Urine WBC Ur Squamous Epith Cells Ur Renal Epithelial Cell Urine Bacteria Hyaline Casts COVID-19 ([facility]I) Negative COVID-19 Clin Com See Note Assessment and Plan (1) Acute kidney injury: Status: Acute Plan 76-year-old male with a past medical history of colon cancer status post surgery with resultant bilateral ureters stricture /bilateral hydronephrosis- on chronic status; presented to the hospital with a chief complaint of difficulty urination. Noted to have following Bilateral hydronephrosis/ urethral strictures/ stents: Status post stent exchange in the OR today by Dr. Reveles. JOANA: Continue IV fluids. Avoid nephrotoxins. Monitor renal function. If not improving will consider Nephrology consult. UTI: Continue ceftriaxone. Follow up cultures. For all other chronic conditions, home medications will be continued- pending med rec
[2021-09-12 02:59] VITALS: BP 96/52; PULSE 54; RESP 14; TEMP 36.3; O2SAT 98
[2021-09-12 08:00] VITALS: BP 121/57; PULSE 73; RESP 18; TEMP 36.4; O2SAT 97
[2021-09-12] MEDS: 0.9 % Sodium Chloride 1,000 ML 100 ML IVCONT ×2 (08:17→17:12)
--- NOTE | 2021-09-12 09:06 | P.PNIM_ITS ---
Subjective Subjective Date of Service: 09/12/21 Interval History: f/u on joana, obstructive uropathy, uti with stents in place s/p exchange of stents yesterday, no complaint today Review of Systems no flank pain no fever or chills Physical Exam Vital Signs: Vital Signs: Last Vital Signs Temp 97.6 F 09/12/21 08:00 Pulse 73 09/12/21 08:00 Resp 18 09/12/21 08:00 BP 121/57 L 09/12/21 08:00 Pulse Ox 97 09/12/21 08:00 O2 Del Method 09/12/21 08:00 BMI result Body Mass Index 19.9 Const: Other: General: AO X 3, no acute distress Resp: CTA bilateral CVS: S1,S2,RRR GI: +BS, NT, no distention Skin: No rash Neuro: motor grossly intact Psych: appropriate affect Objective Data Active Medications Fentanyl (Fentanyl Citrate/Pf 100 Mcg/2 Ml Vial) 25 mcg IVPUSH Q5M PRN; Protocol PRN Reason: Pain, Moderate (Pain Scale 4-6 Sodium Chloride (Ns) 1,000 mls @ 100 mls/hr IVCONT .Q10H [facility] Last Admin: 09/12/21 08:17 Dose: 100 mls/hr Documented By: KYLAH Ceftriaxone Sodium 1 gm/ (Sodium Chloride) 50 mls @ 100 mls/hr IV Q24H [facility] Meclizine HCl (Meclizine Hcl 25 Mg Tablet) 25 mg PO DAILY PRN PRN Reason: Dizziness Ondansetron HCl (Ondansetron Hcl 4 Mg/2 Ml Vial) 4 mg IVPUSH ONCE PRN PRN Reason: Nausea and Vomiting Pharmacy Consult (Consult Rx Perform Med Rec) 1 each MISCELLANE ONCE PRN PRN Reason: Consult order Sodium Chloride (0.9 % Sodium Chloride Flush 3 Ml Syringe) 3 ml IVFLUSH QSHIFT [facility] Last Admin: 09/12/21 08:21 Dose: Not Given Documented By: KYLAH Non-Admin Reason: IV Running Labs CBC & Chem 7: 09/11/21 16:44 09/11/21 16:44 Labs: Laboratory Results - last 24 hr 09/11/21 09/11/21 09/11/21 16:44 16:44 16:44 MCV 95.4 MCH 31.1 MCHC 32.6 RDW 15.4 Plt Count 172 MPV 10.9 Immature Gran % (Auto) 0.2 Neut % (Auto) 65.0 Lymph % (Auto) 23.2 [place] % (Auto) 10.6 Eos % (Auto) 0.6 Baso % (Auto) 0.4 Lymph # (Auto) 1.1 L [place] # (Auto) 0.5 Eos # (Auto) 0.0 Baso # (Auto) 0.0 Abs Immat Gran (auto) 0.01 Absolute Neuts (auto) 3.1 Absolute Nucleated RBC 0.000 Nucleated RBC % (auto) 0.0 Anion Gap 17 Estim Creat Clear Calc 12.5 Estimated GFR 17 Random Glucose 122 H Lactic Acid Calcium 8.9 Total Bilirubin 0.7 AST 10 ALT 6 Alkaline Phosphatase 83 Total Protein 7.1 Albumin 3.9 Urine Color YELLOW Urine Appearance HAZY Urine pH 5.5 Ur Specific [place] 1.025 Urine Protein 1+ H Urine Glucose (UA) NEG Urine Ketones NEG Urine Blood 3+ H Urine Nitrite NEG Ur Leukocyte Esterase 1+ H Urine RBC TNTC H Urine WBC 15-29 H Ur Squamous Epith Cells 2+ Ur Renal Epithelial Cell TRACE Urine Bacteria 1+ Hyaline Casts 0-2 COVID-19 ([facility]I) COVID-[employer] 09/11/21 09/11/21 16:44 17:40 MCV MCH MCHC RDW Plt Count MPV Immature Gran % (Auto) Neut % (Auto) Lymph % (Auto) [place] % (Auto) Eos % (Auto) Baso % (Auto) Lymph # (Auto) [place] # (Auto) Eos # (Auto) Baso # (Auto) Abs Immat Gran (auto) Absolute Neuts (auto) Absolute Nucleated RBC Nucleated RBC % (auto) Anion Gap Estim Creat Clear Calc Estimated GFR Random Glucose Lactic Acid 0.9 Calcium Total Bilirubin AST ALT Alkaline Phosphatase Total Protein Albumin Urine Color Urine Appearance Urine pH Ur Specific [place] Urine Protein Urine Glucose (UA) Urine Ketones Urine Blood Urine Nitrite Ur Leukocyte Esterase Urine RBC Urine WBC Ur Squamous Epith Cells Ur Renal Epithelial Cell Urine Bacteria Hyaline Casts COVID-19 ([facility]) Negative COVID-19 Clin Com See Note Assessment and Plan (1) Acute kidney injury: Status: Acute Plan 76-year-old male with a past medical history of colon cancer status post surgery with resultant bilateral ureters stricture /bilateral hydronephrosis- on chronic status; presented to the hospital with a chief complaint of difficulty urination. Noted to have following Bilateral hydronephrosis/ urethral strictures/ with old stents: Status post stent exchange in the OR 09/[address] Reveles.? JOANA likely from obstructive uropathy:? Continue IV fluids.? Avoid nephrotoxins.? Monitor renal function.? If not improving will consider Nephrology consult. check BMP today UTI: Continue ceftriaxone.? Follow up cultures. need for inaptient: JOANA needs IVF till resulition Quality Stroke Does the patient have a stroke diagnosis?: No VTE Prior VTE?: No VTE Risk Level:: Surgical - moderate VTE Device Contraindication: Treatment Not Indicated VTE Drug Contraindication: Treatment Not Indicated
[2021-09-12 10:03] LABS: Anion Gap 16 (12-20); Blood Urea Nitrogen 48 mg/dL (9-16); Calcium 8.1 mg/dL (8.4-10.2); Carbon Dioxide 12 mmol/L (22-29); Chloride 114 mmol/L (96-108); Creatinine Clr Calc Pharmacy 15.2; Estimated Glomerular Filt Rate 19; Glucose Random 125 mg/dL (60-115); Sodium 137 mmol/L (135-145)
[2021-09-12 11:37] VITALS: BP 108/55; PULSE 58; RESP 18; TEMP 36.4; O2SAT 99
[2021-09-12 16:00] VITALS: BP 111/67; PULSE 64; RESP 20; TEMP 36.9; O2SAT 97
[2021-09-12] MEDS: cefTRIAXone sodium 1 GM in 0.9 % Sodium Chloride 50 ML IV (17:12)
[2021-09-12 20:16] VITALS: BP 107/55; PULSE 54; RESP 16; TEMP 36.2; O2SAT 99
[2021-09-13] VITALS (8 sets, daily range): BP systolic 88–117; BP diastolic 42–59; PULSE 54–87; RESP 16–18; TEMP 36.1–36.8; O2SAT 90–100
[2021-09-13] MEDS: 0.9 % Sodium Chloride 1,000 ML 100 ML IVCONT (03:26)
--- NOTE | 2021-09-13 08:26 | HO.PM.IMPN ---
Subjective Subjective Date of Service: 09/13/21 Interval History: f/u on joana, obstructive uropathy, uti with stents in place s/p exchange of left stent 09/11, no complaint today, BP bit on low side, Cr pending Review of Systems no flank pain no fever or chills Physical Exam Vital Signs: Vital Signs: Last Vital Signs Temp 96.9 F 09/13/21 08:00 Pulse 54 09/13/21 08:00 Resp 18 09/13/21 08:00 BP 88/42 L 09/13/21 08:00 Pulse Ox 100 09/13/21 08:00 O2 Del Method 09/13/21 08:00 BMI result Body Mass Index 19.9 Const: Other: General: AO X 3, no acute distress Resp: CTA bilateral CVS: S1,S2,RRR GI: +BS, NT, no distention Skin: No rash Neuro: motor grossly intact Psych: appropriate affect Objective Data Active Medications Fentanyl (Fentanyl Citrate/Pf 100 Mcg/2 Ml Vial) 25 mcg IVPUSH Q5M PRN; Protocol PRN Reason: Pain, Moderate (Pain Scale 4-6 Fluticasone/Vilanterol (Fluticasone/Vilanterol 100/25 Blst.W.Dev) 1 puff INHALE RDAILY [facility] Sodium Chloride (Ns) 1,000 mls @ 100 mls/hr IVCONT .Q10H [facility] Last Admin: 09/13/21 03:26 Dose: 100 mls/hr Documented By: ELVIE Ceftriaxone Sodium 1 gm/ (Sodium Chloride) 50 mls @ 100 mls/hr IV Q24H [facility] Last Infusion: 09/12/21 18:07 Dose: 0 mls/hr Documented By: KYLAH Meclizine HCl (Meclizine Hcl 25 Mg Tablet) 25 mg PO DAILY PRN PRN Reason: Dizziness Ondansetron HCl (Ondansetron Hcl 4 Mg/2 Ml Vial) 4 mg IVPUSH ONCE PRN PRN Reason: Nausea and Vomiting Pharmacy Consult (Consult Rx Perform Med Rec) 1 each MISCELLANE ONCE PRN PRN Reason: Consult order Sodium Chloride (0.9 % Sodium Chloride Flush 3 Ml Syringe) 3 ml IVFLUSH QSHIFT [facility] Last Admin: 09/13/21 07:21 Dose: Not Given Documented By: KYLAH Non-Admin Reason: IV Running Labs CBC & Chem 7: 09/11/21 16:44 09/12/21 09:33 Labs: Laboratory Results - last 24 hr 09/12/21 09:33 Anion Gap 16 Estim Creat Clear Calc 15.2 Estimated GFR 19 Random Glucose 125 H Calcium 8.1 L D Microbiology Microbiology Results: Microbiology 09/11/21 16:44 Blood Culture - Preliminary Blood - Venous No growth after 24 hours. 09/11/21 16:36 Blood Culture - Preliminary Blood - Venous No growth after 24 hours. 09/11/21 16:44 Urine Culture - Preliminary Urine clean catch - Urine sauer top Culture too young to evaluate. Assessment and Plan (1) Acute kidney injury: Status: Acute Plan 76-year-old male with a past medical history of colon cancer status post surgery with resultant bilateral ureters stricture /bilateral hydronephrosis- on chronic status; presented to the hospital with a chief complaint of difficulty urination. 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 Reveles.? JOANA likely from obstructive uropathy, on top of CKD 3, last creatine date blossom in february at 1.6,? Continue IV fluids.? Avoid nephrotoxins.? Monitor renal function.? Nephrology following UTI: Continue ceftriaxone.? Follow up cultures. need for inaptient: JOANA needs IVF till resolution of renal failure Quality Stroke Does the patient have a stroke diagnosis?: No VTE Prior VTE?: No VTE Risk Level:: Surgical - moderate VTE Device Contraindication: Treatment Not Indicated VTE Drug Contraindication: Treatment Not Indicated
[2021-09-13] MEDS: Fluticasone/Vilanterol 100/25 BLST.W.DEV 1 PUFF INHALE (09:25)
[2021-09-13] MEDS: 0.9 % Sodium Chloride 1,000 ML 150 ML IVCONT (11:36)
--- NOTE | 2021-09-13 13:55 | PM.UROPN ---
Subjective Subjective Date of Service: 09/13/21 Interval history: Stent exchanged on left side Found to have apparent superficial bladder cancer at right obstructed ureteric orifice Creatinine is slowly coming down Continue to follow Discussed findings with daughter today If creatinine remains improving may DC tomorrow Physical Exam Vital Signs: Vital Signs: Last Vital Signs Temp 96.9 F 09/13/21 08:00 Pulse 87 09/13/21 09:26 Resp 18 09/13/21 12:00 BP 88/42 L 09/13/21 08:00 Pulse Ox 100 09/13/21 08:00 O2 Del Method 09/13/21 08:00 BMI result Body Mass Index 19.9 Const: General: cooperative, healthy appearing, comfortable and no acute distress Orientation/consciousness: patient oriented x3 HEENT: Face and sinus: Yes normal facial exam Mouth: moist mucous membranes Neck: Neck: Yes normal visual inspection, Yes full ROM and Yes trachea midline Chest: Chest palpation & inspection: normal inspection of the chest Resp: Effort & Inspection: normal respiratory effort, able to speak in complete sentences and no respiratory distress GI: Inspection: Yes normal to inspection Back/Spine/Pelvis: Cervical Spine: normal cervical lordosis Thoracic/Lumbar Spine: thoracic and lumbar spine normal to inspection Skin: General skin exam: no rashes or lesions noted Neuro: General: patient oriented x3, tone normal and moves all extremities Extrem: General: Yes normal to inspection and Yes capillary refill normal Urology Results Labs CBC & Chem 7: 09/11/21 16:44 09/12/21 09:33 Progress Note: A&P Assessment and plan (1) Acute kidney injury: Status: Acute (2) Hydronephrosis concurrent with and due to ureteral stricture: Status: Acute Plan Follow Cr Time Spent With Patient Time: Total time spent is greater than 50% in coordination of care (as documented) at patient's floor/unit and/or counseling patient: Progress Note: Quality Stroke Does the patient have a stroke diagnosis?: No
[2021-09-13 14:19] LABS: Anion Gap 16 (12-20); Blood Urea Nitrogen 38 mg/dL (9-16); Calcium 7.8 mg/dL (8.4-10.2); Carbon Dioxide 10 mmol/L (22-29); Chloride 116 mmol/L (96-108); Creatinine Clr Calc Pharmacy 18.5; Estimated Glomerular Filt Rate 24; Glucose Random 133 mg/dL (60-115); Sodium 138 mmol/L (135-145)
[2021-09-13] MEDS: oxyCODONE HCl Immed Release 5 MG TABLET 10 MG PO (14:26)
[2021-09-13] MEDS: Sodium Bicarbonate 8.4% 150 MEQ in Dextrose 5 % 850 ML 50 MEQ IV (15:41)
[2021-09-13] MEDS: cefTRIAXone sodium 1 GM in 0.9 % Sodium Chloride 50 ML IV (16:30)
--- NOTE | 2021-09-13 18:10 | PM.CNNEP ---
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 He was noted to have bilateral hydronephrosis/ urethral strictures/ with old stents and is now status post Left stent exchange in the OR 09/[address] Reveles. Cr improving with ivf's and he has noted uop. He is also being treated for uti with ceftriaxone. ROS otherwise negative. Review of Systems Constitutional: Reports as per [facility] Past Medical History Medical History Arthritis Asthma COVID-19 vaccine series completed Dementia Elevated cholesterol History of colon cancer Functional capacity: independent ambulation Surgical History Surgical History History of bowel resection Hx of colonoscopy Hx of cystoscopy Hx of cystoscopy Hx of cystoscopy Social History Social History Household Members: Family Housing: Apartment Do you presently have visiting nurse or other home services: Yes Alcohol intake: never Patient Tobacco Use Status: Former Tobacco user Quit Date: 1990 Tobacco use type: Cigarette Use of substances other than those prescribed or required for medical reasons: No Currently Displaying Signs/Symptoms of Drug Intoxication Withdrawal: No Have you been hit, kicked, punched, or otherwise hurt by someone within the past year? If so, by whom?: No Do you feel safe in your current relationship?: No Is there a partner from a previous relationship who is making you feel unsafe now?: No Are you made to feel afraid or neglected: No Advance Directives: Yes Advance Directives Information Provided: No Advance Directives on File: No Advance Directives Date on File: 09/11/21 Do you have thoughts of harming others: None Do you have a plan to hurt others: No Plan Recently lost weight without trying: Yes How much weight loss: 34pounds or more Eating poorly because of decreased appetite: Yes Nutrition screen score: 7 Nutrition Risks: Recent weight gain Meds Allergies Allergy/AdvReac Type Severity Reaction Status Date / Time No Known Allergies Allergy Verified 09/11/21 14:21 Active Medications: Current Medications Fentanyl (Fentanyl Citrate/Pf 100 Mcg/2 Ml Vial) 25 mcg IVPUSH Q5M PRN; Protocol PRN Reason: Pain, Moderate (Pain Scale 4-6 Fluticasone/Vilanterol (Fluticasone/Vilanterol 100/25 Blst.W.Dev) 1 puff INHALE RDAILY [facility] Last Admin: 09/13/21 09:25 Dose: 1 puff Ceftriaxone Sodium 1 gm/ (Sodium Chloride) 50 mls @ 100 mls/hr IV Q24H [facility] Last Infusion: 09/13/21 17:06 Dose: Infused Sodium Bicarbonate 150 meq/ (Dextrose) 1,000 mls @ 50 mls/hr IV .Q20H [facility] Last Infusion: 09/13/21 17:06 Dose: 50 mls/hr Meclizine HCl (Meclizine Hcl 25 Mg Tablet) 25 mg PO DAILY PRN PRN Reason: Dizziness Ondansetron HCl (Ondansetron Hcl 4 Mg/2 Ml Vial) 4 mg IVPUSH ONCE PRN PRN Reason: Nausea and Vomiting Oxycodone HCl (Oxycodone Hcl Immed Release 5 Mg Tablet) 10 mg PO QID PRN PRN Reason: Pain, Severe (Pain Scale 7-10) Last Admin: 09/13/21 14:26 Dose: 10 mg Pharmacy Consult (Consult Rx Perform Med Rec) 1 each MISCELLANE ONCE PRN PRN Reason: Consult order Sodium Chloride (0.9 % Sodium Chloride Flush 3 Ml Syringe) 3 ml IVFLUSH QSHIFT [facility] Last Admin: 09/13/21 16:06 Dose: Not Given Home Medications Medication Instructions Recorded Confirmed Last Taken Type fluticasone 250 mcg-salmeterol 50 1 ea PO Q12H 03/06/20 09/11/21 09/11/21 History mcg/dose blistr powdr for inhalation hyoscyamine sulfate 0.125 mg 0.125 mg PO Q4H PRN Secretions 09/02/21 09/11/21 09/11/21 History tablet (Levsin) meclizine 25 mg tablet 25 mg PO DAILY PRN Dizziness 09/02/21 09/11/21 09/11/21 History morphine concentrate 100 mg/5 mL 5 mg PO Q1H PRN Dyspnea 09/02/21 09/11/21 Unknown History (20 mg/mL) oral solution oxycodone 10 mg tablet 10 mg PO QID PRN pain 09/02/21 09/11/21 09/11/21 History Physical Exam Vital Signs: Last Vital Signs Temp 97.6 F 09/13/21 15:41 Pulse 67 09/13/21 15:41 Resp 17 09/13/21 15:41 BP 114/59 L 09/13/21 15:41 Pulse Ox 100 09/13/21 15:41 O2 Del Method 09/13/21 15:41 BMI result Body Mass Index 19.9 Const General: no acute distress HEENT Head: Yes normocephalic Neck Neck: Yes no JVD Resp Auscultation: clear to auscultation bilaterally Cardio Jugular venous distension: no JVD Rate: regular rate Rhythm: regular rhythm GI Auscultation: normal bowel sounds Neuro General: moves all extremities Extrem General: Yes no clubbing, cyanosis or edema Results Lab Results Result Diagrams: 09/11/21 16:44 09/13/21 13:48 Lab results: Chemistry 09/11/21 09/12/21 09/13/21 16:44 09:33 13:48 Sodium 137 137 138 Potassium 4.9 5.0 4.0 Carbon Dioxide 14 L 12 L 10 L* BUN 48 H D 48 H 38 H Creatinine 3.57 H 3.16 H 2.60 H Calcium 8.9 8.1 L D 7.8 L Hematology 09/11/21 16:44 WBC 4.8 Hgb 8.7 L Plt Count 172 Urinalysis 09/11/21 16:44 Urine Color YELLOW Urine Appearance HAZY Urine pH 5.5 Ur Specific Kiln 1.025 Urine Protein 1+ H Urine Glucose (UA) NEG Urine Ketones NEG Urine Blood 3+ H Urine Nitrite NEG Ur Leukocyte Esterase 1+ H Urine RBC TNTC H Urine WBC 15-29 H Ur Squamous Epith Cells 2+ Hyaline Casts 0-2 Assessment and Plan (1) Acute kidney injury: Status: Acute Plan 76-year-old male with a past medical history of colon cancer status post surgery with resultant bilateral ureters stricture /bilateral hydronephrosis- on chronic status; presented to the hospital with a chief complaint of difficulty urination. He was noted to have bilateral hydronephrosis/ urethral strictures/ with old stents and is now status post Left stent exchange in the OR 09/[address] Reveles. Cr improving with ivf's and he has noted uop. He is also being treated for uti with ceftriaxone. #)JOANA s/p stent placement by urology. S-Cr improving. Continue with IVF support. Agree with NaHCO3 gtt given worsening metabolic acidosis. Add vbg Maintain I=O. given release of obstruction, montor for evidence of POD. Avoidance of nsaids, acei/arb, IV contrast. Suggest repeat renal US if S-Cr up-trends. Rest per primary team. Procedures Date of Service Date of Service: 09/13/21
[2021-09-13] MEDS: 0.9 % Sodium Chloride Flush 3 ML SYRINGE IVFLUSH (23:35)
[2021-09-14 03:33] VITALS: BP 114/57; PULSE 58; RESP 16; TEMP 37; O2SAT 99
[2021-09-14 06:35] LABS: Anion Gap 12 (12-20); Blood Urea Nitrogen 32 mg/dL (9-16); Calcium 7.6 mg/dL (8.4-10.2); Carbon Dioxide 18 mmol/L (22-29); Chloride 114 mmol/L (96-108); Creatinine Clr Calc Pharmacy 21.5; Estimated Glomerular Filt Rate 28; Glucose Random 97 mg/dL (60-115); Potassium 3.6 mmol/L (3.3-5.1); Sodium 140 mmol/L (135-145)
[2021-09-14 07:14] VITALS: BP 129/62; PULSE 55; RESP 16; TEMP 36.2; O2SAT 97
--- NOTE | 2021-09-14 07:14 | HO.POSTANES ---
Post Anesthesia Evaluation Post Anesthesia Evaluation Vital Signs: Vital Signs Temp Pulse Resp BP Pulse Ox O2 Del Method 09/14/21 03:33 98.6 F 58 16 114/57 L 99 Room Air 09/13/21 23:30 98.3 F 55 16 117/59 L 99 Room Air 09/13/21 19:52 98 F 55 17 96/53 L 100 Room Air Anesthesia: General LMA Mental Status: Awake Pain Control: Satisfactory Nausea/Vomiting: None Hydration: Adequate Anesthesia-Related Issues: No Anes. Related Issues
[2021-09-14] MEDS: Fluticasone/Vilanterol 100/25 BLST.W.DEV 1 PUFF INHALE (08:38)
[2021-09-14 08:40] VITALS: PULSE 59; RESP 16; O2SAT 93
--- NOTE | 2021-09-14 09:54 | PM.PNNEP ---
Subjective Subjective Date of Service: 09/14/21 Interval history: Events noted Physical Exam Vital Signs: Vital Signs: Last Vital Signs Temp 97.1 F 09/14/21 07:14 Pulse 59 09/14/21 08:40 Resp 16 09/14/21 08:40 BP 129/62 09/14/21 07:14 Pulse Ox 97 09/14/21 07:14 O2 Del Method 09/14/21 07:14 BMI result Body Mass Index 19.9 Const: General: cooperative and awake Eyes: General: appearance normal, both eyes and all related structures Neck: Neck: Yes full ROM and Yes supple Resp: Effort & Inspection: normal respiratory effort and no cough Cardio: Jugular venous distension: no JVD Palpation: no palpable S3 Heart sounds: no rubs GI: Inspection: Yes normal to inspection Palpation (GI): Soft to palpation Auscultation: normal bowel sounds Extrem: General: Yes normal to inspection and Yes no pedal edema Objective Data Labs CBC & Chem 7: 09/11/21 16:44 09/14/21 05:54 Labs: Laboratory Results - last 24 hr 09/13/21 09/14/21 13:48 05:54 Sodium 138 140 Potassium 4.0 3.6 Chloride 116 H 114 H Carbon Dioxide 10 L* 18 L Anion Gap 16 12 BUN 38 H 32 H Creatinine 2.60 H 2.24 H Estim Creat Clear Calc 18.5 21.5 Estimated GFR 24 28 Random Glucose 133 H 97 Calcium 7.8 L 7.6 L Microbiology Microbiology Results: Microbiology 09/11/21 16:44 Blood - Venous Blood Culture - Preliminary No growth after 48 hours. 09/11/21 16:36 Blood - Venous Blood Culture - Preliminary No growth after 48 hours. 09/11/21 16:44 Urine clean catch - Urine sauer top Urine Culture - Final Procedures Date of Service Date of Service: 09/14/21 Assessment & Plan Assessment and plan (1) Acute kidney injury: Status: Acute Assessment and Plan: JOANA due to obstructive uropathy s/p Stent exchanged on left side Found to have apparent superficial bladder cancer at right obstructed ureteric orifice Renal Fx is improving Met Acidosis Keep IVF with Bicarb for 1 more day Time Spent With Patient Time: Total time spent is greater than 50% in coordination of care (as documented) at patient's floor/unit and/or counseling patient: Progress Note: Quality Stroke Does the patient have a stroke diagnosis?: No
--- NOTE | 2021-09-14 09:57 | P.PNIM_ITS ---
Subjective Subjective Date of Service: 09/15/21 Interval History: f/u on joana, obstructive uropathy, uti with stents in place s/p exchange of left stent 09/11, no complaint today, BP bit on low side, Cr trending down, met acidosis is better Review of Systems no flank pain no fever or chills Physical Exam Vital Signs: Vital Signs: Last Vital Signs Temp 97.1 F 09/14/21 07:14 Pulse 59 09/14/21 08:40 Resp 16 09/14/21 08:40 BP 129/62 09/14/21 07:14 Pulse Ox 97 09/14/21 07:14 O2 Del Method 09/14/21 07:14 BMI result Body Mass Index 19.9 Const: Other: General: AO X 3, no acute distress Resp: CTA bilateral CVS: S1,S2,RRR GI: +BS, NT, no distention Skin: No rash Neuro: motor grossly intact Psych: appropriate affect Objective Data Active Medications Fentanyl (Fentanyl Citrate/Pf 100 Mcg/2 Ml Vial) 25 mcg IVPUSH Q5M PRN; Protocol PRN Reason: Pain, Moderate (Pain Scale 4-6 Fluticasone/Vilanterol (Fluticasone/Vilanterol 100/25 Blst.W.Dev) 1 puff INHALE RDAILY REPLACED BY [facility] Last Admin: 09/14/21 08:38 Dose: 1 puff Documented By: ASPEN Ceftriaxone Sodium 1 gm/ (Sodium Chloride) 50 mls @ 100 mls/hr IV Q24H REPLACED BY [facility] Last Infusion: 09/13/21 17:06 Dose: 0 mls/hr Documented By: KYLAH Sodium Bicarbonate 150 meq/ (Dextrose) 1,000 mls @ 50 mls/hr IV .Q20H REPLACED BY [facility] Last Infusion: 09/13/21 17:06 Dose: 50 mls/hr Documented By: KYLAH Meclizine HCl (Meclizine Hcl 25 Mg Tablet) 25 mg PO DAILY PRN PRN Reason: Dizziness Ondansetron HCl (Ondansetron Hcl 4 Mg/2 Ml Vial) 4 mg IVPUSH ONCE PRN PRN Reason: Nausea and Vomiting Oxycodone HCl (Oxycodone Hcl Immed Release 5 Mg Tablet) 10 mg PO QID PRN PRN Reason: Pain, Severe (Pain Scale 7-10) Last Admin: 09/13/21 14:26 Dose: 10 mg Documented By: KYLAH Pharmacy Consult (Consult Rx Perform Med Rec) 1 each MISCELLANE ONCE PRN PRN Reason: Consult order Sodium Chloride (0.9 % Sodium Chloride Flush 3 Ml Syringe) 3 ml IVFLUSH QSHIFT REPLACED BY [facility] Last Admin: 09/14/21 08:44 Dose: Not Given Documented By: SONJA Non-Admin Reason: IV Running Labs CBC & Chem 7: 09/11/21 16:44 09/15/21 09:02 Labs: Laboratory Results - last 24 hr 09/13/21 09/14/21 13:48 05:54 Anion Gap 16 12 Estim Creat Clear Calc 18.5 21.5 Estimated GFR 24 28 Random Glucose 133 H 97 Calcium 7.8 L 7.6 L Microbiology Microbiology Results: Microbiology 09/11/21 16:44 Blood Culture - Preliminary Blood - Venous No growth after 48 hours. 09/11/21 16:36 Blood Culture - Preliminary Blood - Venous No growth after 48 hours. 09/11/21 16:44 Urine Culture - Final Urine clean catch - Urine sauer top Assessment and Plan (1) Acute kidney injury: Status: Acute Plan 76-year-old male with a past medical history of colon cancer status post surgery with resultant bilateral ureters stricture /bilateral hydronephrosis- on chronic status; presented to the hospital with a chief complaint of difficulty urination. 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 Reveles.? JOANA likely from obstructive uropathy, on top of CKD 3, last creatine date blossom in february at 1.6,? now trending down. Continue IV fluids.? Avoid nephrotoxins.? Monitor renal function.? Nephrology following Metabolic acidosis d/t renal failure--better with bicab UTI: Continue ceftriaxone.? Follow up cultures. need for inaptient: JOANA needs IVF till resolution of renal failure Quality Stroke Does the patient have a stroke diagnosis?: No VTE Prior VTE?: No VTE Risk Level:: Surgical - moderate VTE Device Contraindication: Treatment Not Indicated VTE Drug Contraindication: Treatment Not Indicated
[2021-09-14 11:08] LABS: VBG HCO3 19 mmol/L (22-26); VBG pCO2 37 mmHg; VBG pH 7.32 (7.32-7.43); VBG pO2 46 mmHg
[2021-09-14 11:12] LABS: Venous Blood Gas Refer to POC result
[2021-09-14] MEDS: Sodium Bicarbonate 8.4% 150 MEQ in Dextrose 5 % 850 ML 50 MEQ IV (12:01)
--- NOTE | 2021-09-14 12:29 | MHC.CM.PN ---
IMM addressed with daughter-Queta, original to patient at bedside and copy filed in chart. IMM addendum completed. Patient is Irish Speaking only. Queta, daughter, reports patient lives alone in elderly housing but her mother sees him everyday. Queta reports she is patient's EQUIPMENT SERVICE ASSOCIATE ([employer]). He receives 50 hours weekly of care (36 day/evening and 14 night hours). Patient participates with [facility], a nurse and aids social worker check-in with family twice a year (every 6 months). He is Covid vax'd x2 )[employer]). Patient is an active hospice patient with [facility]. PCP is Farhad Orona. Queta will transport home. HCP has been completed, original and copies to patient/family, copy uploaded [facility] [employer] [facility], and copy filed in chart. D/C Plan: Home resume EQUIPMENT SERVICE ASSOCIATE and Hospice services.
[2021-09-14 13:54] VITALS: BMI 19.9
--- NOTE | 2021-09-14 14:03 | MHC.CLN ---
NUTRITION CONSULT. SIGNIFICANT WEIGHT LOSS X 1 YEAR, -34%. QUALIFIES SEVERELY MALNOURISHED IN THE CONTEXT OF CHRONIC ILLNESS. ADDING ENSURE CLEAR TID (720 KCALS, 24 G PROTEIN) AND MAGIC CUP BID (580 KCALS, 18 G PROTEIN). DISCUSSED INTAKE AND SUPPLEMENTS WITH FAMILY MEMBER AND AGREES TO BOTH. REPORTS THAT TAKES SMALL AMOUNTS OF FOOD AT HOME AND USUALLY EATS 2 X DAY. WILL TAKE SOUP, OATMEAL. FOLLOW FOR INTAKE OF MEALS AND SUPPLEMENTS. SEE CLINICAL NUTRITION ASSESSMENT 09/14/21.
[2021-09-14 15:20] VITALS: BP 136/63; PULSE 70; RESP 17; TEMP 36.6; O2SAT 97
[2021-09-14] MEDS: oxyCODONE HCl Immed Release 5 MG TABLET 10 MG PO ×2 (15:35→23:51)
[2021-09-14] MEDS: cefTRIAXone sodium 1 GM in 0.9 % Sodium Chloride 50 ML IV (16:52)
[2021-09-14 19:26] VITALS: BP 105/51; PULSE 63; RESP 17; TEMP 36; O2SAT 99
[2021-09-14] MEDS: 0.9 % Sodium Chloride Flush 3 ML SYRINGE IVFLUSH (22:06)
[2021-09-14 23:47] VITALS: BP 119/60; PULSE 57; RESP 16; TEMP 37.2; O2SAT 99
[2021-09-15] VITALS (7 sets, daily range): BP systolic 105–131; BP diastolic 58–64; PULSE 63–71; RESP 16–18; TEMP 36.1–37.1; O2SAT 96–99
[2021-09-15] MEDS: Sodium Bicarbonate 8.4% 150 MEQ in Dextrose 5 % 850 ML 50 MEQ IV (07:43)
[2021-09-15] MEDS: oxyCODONE HCl Immed Release 5 MG TABLET 10 MG PO ×2 (08:17→15:01)
[2021-09-15] MEDS: Fluticasone/Vilanterol 100/25 BLST.W.DEV 1 PUFF INHALE (08:39)
--- NOTE | 2021-09-15 09:39 | P.PNNP_ITS ---
Subjective Subjective Date of Service: 09/15/21 Interval history: f/u on joana, obstructive uropathy, uti with stents in place s/p exchange of left stent 09/11, no complaint today, BP bit on low side, Cr trending down, met acidosis is better Physical Exam Vital Signs: Vital Signs: Last Vital Signs Temp 98.3 F 09/15/21 07:27 Pulse 65 09/15/21 08:39 Resp 18 09/15/21 08:39 BP 128/58 L 09/15/21 07:27 Pulse Ox 99 09/15/21 07:27 O2 Del Method 09/15/21 07:27 BMI result Body Mass Index 19.9 Const: General: cooperative and awake Eyes: General: appearance normal, both eyes and all related structures Neck: Neck: Yes full ROM and Yes supple Resp: Effort & Inspection: normal respiratory effort and no cough Cardio: Jugular venous distension: no JVD Palpation: no palpable S3 He art sounds: no rubs GI: Inspection: Yes normal to inspection Palpation (GI): Soft to palpation Auscultation: normal bowel sounds Extrem: General: Yes normal to inspection and Yes no pedal edema Objective Data Labs CBC & Chem 7: 09/11/21 16:44 09/14/21 05:54 Labs: Laboratory Results - last 24 hr 09/14/21 11:03 VBG pH 7.32 VBG pCO2 37 VBG pO2 46 VBG HCO3 19 L VBG O2 Saturation 73.0 VBG Base Excess -6.0 Microbiology Microbiology Results: Microbiology 09/11/21 16:44 Blood - Venous Blood Culture - Preliminary No growth after 48 hours. 09/11/21 16:36 Blood - Venous Blood Culture - Preliminary No growth after 48 hours. 09/11/21 16:44 Urine clean catch - Urine sauer top Urine Culture - Final Procedures Date of Service Date of Service: 09/15/21 Assessment & Plan Assessment and plan (1) Acute kidney injury: Status: Acute Assessment and Plan: JOANA due to obstructive uropathy s/p Stent exchanged on left side Found to have apparent superficial bladder cancer at right obstructed ureteric orifice Renal Fx is improving Met Acidosis Keep IVF with Bicarb pending labs If Cr is better than 2.2, can DC IVF Switch to PO Bicarb 650 mg BID x 1 week Time Spent With Patient Time: Total time spent is greater than 50% in coordination of care (as documented) at patient's floor/unit and/or counseling patient: Progress Note: Quality Stroke Does the patient have a stroke diagnosis?: No
[2021-09-15 09:43] LABS: Anion Gap 15 (12-20); Blood Urea Nitrogen 23 mg/dL (9-16); Calcium 7.9 mg/dL (8.4-10.2); Carbon Dioxide 25 mmol/L (22-29); Chloride 105 mmol/L (96-108); Creatinine Clr Calc Pharmacy 24.4; Estimated Glomerular Filt Rate 33; Glucose Random 120 mg/dL (60-115); Potassium 3.9 mmol/L (3.3-5.1); Sodium 141 mmol/L (135-145)
--- NOTE | 2021-09-15 10:48 | HO.PM.IMPN ---
Subjective Subjective Date of Service: 09/15/21 Interval History: f/u on joana, obstructive uropathy, uti with stents in place Cr trending down, no new issues Review of Systems no fever no pain of any kind Physical Exam Vital Signs: Vital Signs: Last Vital Signs Temp 98.3 F 09/15/21 07:27 Pulse 65 09/15/21 08:39 Resp 18 09/15/21 08:39 BP 128/58 L 09/15/21 07:27 Pulse Ox 99 09/15/21 07:27 O2 Del Method 09/15/21 07:27 BMI result Body Mass Index 19.9 Const: Other: General: AO X 3, no acute distress Resp: CTA bilateral CVS: S1,S2,RRR GI: +BS, NT, no distention Skin: No rash Neuro: motor grossly intact Psych: appropriate affect Objective Data Active Medications Fentanyl (Fentanyl Citrate/Pf 100 Mcg/2 Ml Vial) 25 mcg IVPUSH Q5M PRN; Protocol PRN Reason: Pain, Moderate (Pain Scale 4-6 Fluticasone/Vilanterol (Fluticasone/Vilanterol 100/25 Blst.W.Dev) 1 puff INHALE RDAILY [facility] Last Admin: 09/15/21 08:39 Dose: 1 puff Documented By: CARMEN Ceftriaxone Sodium 1 gm/ (Sodium Chloride) 50 mls @ 100 mls/hr IV Q24H [facility] Last Infusion: 09/14/21 17:31 Dose: 0 mls/hr Documented By: SONJA Sodium Bicarbonate 150 meq/ (Dextrose) 1,000 mls @ 50 mls/hr IV .Q20H [facility] Last Admin: 09/15/21 07:43 Dose: 50 mls/hr Documented By: SONJA Meclizine HCl (Meclizine Hcl 25 Mg Tablet) 25 mg PO DAILY PRN PRN Reason: Dizziness Ondansetron HCl (Ondansetron Hcl 4 Mg/2 Ml Vial) 4 mg IVPUSH ONCE PRN PRN Reason: Nausea and Vomiting Oxycodone HCl (Oxycodone Hcl Immed Release 5 Mg Tablet) 10 mg PO QID PRN PRN Reason: Pain, Severe (Pain Scale 7-10) Last Admin: 09/15/21 08:17 Dose: 10 mg Documented By: SONJA Pharmacy Consult (Consult Rx Perform Med Rec) 1 each MISCELLANE ONCE PRN PRN Reason: Consult order Sodium Chloride (0.9 % Sodium Chloride Flush 3 Ml Syringe) 3 ml IVFLUSH QSHIFT [facility] Last Admin: 09/15/21 07:46 Dose: Not Given Documented By: SONJA Non-Admin Reason: IV Running Labs CBC & Chem 7: 09/11/21 16:44 09/15/21 09:02 Labs: Laboratory Results - last 24 hr 09/14/21 09/15/21 11:03 09:02 VBG pH 7.32 VBG pCO2 37 VBG pO2 46 VBG HCO3 19 L VBG O2 Saturation 73.0 VBG Base Excess -6.0 Anion Gap 15 Estim Creat Clear Calc 24.4 Estimated GFR 33 Random Glucose 120 H Calcium 7.9 L Assessment and Plan (1) Acute kidney injury: Status: Acute Plan 76-year-old male with a past medical history of colon cancer status post surgery with resultant bilateral ureters stricture /bilateral hydronephrosis- on chronic status; presented to the hospital with a chief complaint of difficulty urination. 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 Reveles.? JOANA likely from obstructive uropathy, on top of CKD 3, last creatine date blossom in february at 1.6,? now trending down to 1.9. Continue IV fluids.? Avoid nephrotoxins.? Monitor renal function.? Nephrology following Metabolic acidosis d/t renal failure--resolved UTI: Continue ceftriaxone.? culture negative, Ceftin at discharge need for inaptient: JOANA needs IVF till resolution of renal failure medically ok to dicharge Quality Stroke Does the patient have a stroke diagnosis?: No VTE Prior VTE?: No VTE Risk Level:: Surgical - moderate VTE Device Contraindication: Treatment Not Indicated VTE Drug Contraindication: Treatment Not Indicated
[2021-09-15] MEDS: ondansetron HCL 4 MG/2 ML VIAL IVPUSH ×2 (15:03→22:17)
[2021-09-15] MEDS: cefTRIAXone sodium 1 GM in 0.9 % Sodium Chloride 50 ML IV (16:28)
[2021-09-15] MEDS: 0.9 % Sodium Chloride Flush 3 ML SYRINGE IVFLUSH (16:34)
[2021-09-16] MEDS: 0.9 % Sodium Chloride Flush 3 ML SYRINGE IVFLUSH ×2 (01:12→08:58)
[2021-09-16 03:30] VITALS: BP 129/64; PULSE 69; RESP 18; TEMP 37.1; O2SAT 98
[2021-09-16 07:40] VITALS: BP 113/56; PULSE 67; RESP 18; TEMP 37.9; O2SAT 96
[2021-09-16 08:08] VITALS: PULSE 78; RESP 20; O2SAT 98
[2021-09-16] MEDS: Fluticasone/Vilanterol 100/25 BLST.W.DEV 1 PUFF INHALE (08:08)
--- NOTE | 2021-09-16 09:40 | MHC.CLN ---
F/U DIET=REGULAR. SUPPLEMENTS ENSURE CLEAR TID (720 KCALS, 24 G PROTEIN) AND MAGIC CUP BID (580 KCALS, 18 G PROTEIN). INTAKE APPEARS VARIABLE WITH MANY MEALS 75-100%. USUAL MEAL PATTERN AT HOME IS 2 MEALS PER DAY, SMALL AMOUNTS. PER NUTRITION ASSESSMENT, PATIENT IS SEVERELY MALNOURISHED. FOLLOW FOR INTAKE OF MEALS AND SUPPLEMENTS.
--- NOTE | 2021-09-16 09:43 | PM.PNNEP ---
Subjective Subjective Date of Service: 09/17/21 Interval history: f/u on joana, obstructive uropathy, uti with stents in place Cr trending down, no new issues Physical Exam Vital Signs: Vital Signs: Last Vital Signs Temp 100.2 F 09/16/21 07:40 Pulse 78 09/16/21 08:08 Resp 20 09/16/21 08:08 BP 113/56 L 09/16/21 07:40 Pulse Ox 96 09/16/21 07:40 O2 Del Method 09/16/21 07:40 BMI result Body Mass Index 19.9 Const: General: cooperative and awake Eyes: General: appearance normal, both eyes and all related structures Neck: Neck: Yes full ROM and Yes supple Resp: Effort & Inspection: normal respiratory effort and no cough Cardio: Jugular venous distension: no JVD Palpation: no palpable S3 Heart sounds: no rubs GI: Inspection: Yes normal to inspection Palpation (GI): Soft to palpation Auscultation: normal bowel sounds Extrem: General: Yes normal to inspection and Yes no pedal edema Objective Data Labs CBC & Chem 7: 09/11/21 16:44 09/16/21 08:57 Labs: Laboratory Results - last 24 hr 09/15/21 09:02 Sodium 141 Potassium 3.9 Chloride 105 Carbon Dioxide 25 Anion Gap 15 BUN 23 H Creatinine 1.97 H Estim Creat Clear Calc 24.4 Estimated GFR 33 Random Glucose 120 H Calcium 7.9 L Microbiology Microbiology Results: Microbiology 09/11/21 16:44 Blood - Venous Blood Culture - Preliminary No growth after 48 hours. 09/11/21 16:36 Blood - Venous Blood Culture - Preliminary No growth after 48 hours. 09/11/21 16:44 Urine clean catch - Urine sauer top Urine Culture - Final Procedures Date of Service Date of Service: 09/16/21 Assessment & Plan Assessment and plan (1) Acute kidney injury: Status: Acute Assessment and Plan: JOANA due to obstructive uropathy s/p Stent exchanged on left side Found to have apparent superficial bladder cancer at right obstructed ureteric orifice Renal Fx is improving Met Acidosis stands corrected No need for Bicarb at ths time Time Spent With Patient Time: Total time spent is greater than 50% in coordination of care (as documented) at patient's floor/unit and/or counseling patient: Progress Note: Quality Stroke Does the patient have a stroke diagnosis?: No
[2021-09-16 09:59] LABS: Anion Gap 19 (12-20); Blood Urea Nitrogen 21 mg/dL (9-16); Carbon Dioxide 25 mmol/L (22-29); Chloride 100 mmol/L (96-108); Estimated Glomerular Filt Rate 31; Glucose Random 123 mg/dL (60-115); Potassium 3.9 mmol/L (3.3-5.1); Sodium 140 mmol/L (135-145)
[2021-09-16 10:52] LABS: Calcium 8.6 mg/dL (8.4-10.2)
--- NOTE | 2021-09-16 11:52 | HO.PM.IMPN ---
Subjective Subjective Date of Service: 09/16/21 Interval History: f/u on joana, obstructive uropathy, uti with stents in place Cr trending down, today he's complaining of not feeling good and has abdominal discomfort Review of Systems no fever no pain of any kind Physical Exam Vital Signs: Vital Signs: Last Vital Signs Temp 100.2 F 09/16/21 07:40 Pulse 78 09/16/21 08:08 Resp 20 09/16/21 08:08 BP 113/56 L 09/16/21 07:40 Pulse Ox 96 09/16/21 07:40 O2 Del Method 09/16/21 07:40 BMI result Body Mass Index 19.9 Const: Other: General: AO X 3, no acute distress Resp: CTA bilateral CVS: S1,S2,RRR GI: +BS, NT, no distention Skin: No rash Neuro: motor grossly intact Psych: appropriate affect Objective Data Active Medications Fentanyl (Fentanyl Citrate/Pf 100 Mcg/2 Ml Vial) 25 mcg IVPUSH Q5M PRN; Protocol PRN Reason: Pain, Moderate (Pain Scale 4-6 Fluticasone/Vilanterol (Fluticasone/Vilanterol 100/25 Blst.W.Dev) 1 puff INHALE RDAILY [facility] Last Admin: 09/16/21 08:08 Dose: 1 puff Documented By: CARMEN Ceftriaxone Sodium 1 gm/ (Sodium Chloride) 50 mls @ 100 mls/hr IV Q24H [facility] Last Infusion: 09/15/21 18:13 Dose: 0 mls/hr Documented By: SONJA Meclizine HCl (Meclizine Hcl 25 Mg Tablet) 25 mg PO DAILY PRN PRN Reason: Dizziness Ondansetron HCl (Ondansetron Hcl 4 Mg/2 Ml Vial) 4 mg IVPUSH Q8H PRN PRN Reason: Nausea and Vomiting Last Admin: 09/15/21 22:17 Dose: 4 mg Documented By: MORRINL Oxycodone HCl (Oxycodone Hcl Immed Release 5 Mg Tablet) 10 mg PO QID PRN PRN Reason: Pain, Severe (Pain Scale 7-10) Last Admin: 09/15/21 15:01 Dose: 10 mg Documented By: SONJA Pharmacy Consult (Consult Rx Perform Med Rec) 1 each MISCELLANE ONCE PRN PRN Reason: Consult order Sodium Chloride (0.9 % Sodium Chloride Flush 3 Ml Syringe) 3 ml IVFLUSH QSHIFT [facility] Last Admin: 09/16/21 08:58 Dose: 3 ml Documented By: LOGAN Labs CBC & Chem 7: 09/11/21 16:44 09/16/21 08:57 Labs: Laboratory Results - last 24 hr 09/16/21 08:57 Anion Gap 19 Estim Creat Clear Calc 23.0 Estimated GFR 31 Random Glucose 123 H Calcium 8.6 D Assessment and Plan (1) Acute kidney injury: Status: Acute (2) BPH loc w urin obs/LUTS: Status: Acute Plan 76-year-old male with a past medical history of colon cancer status post surgery with resultant bilateral ureters stricture /bilateral hydronephrosis- on chronic status; presented to the hospital with a chief complaint of difficulty urination. 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 Reveles.? JOANA likely from obstructive uropathy, on top of CKD 3, last creatine date blossom in february at 1.6,? now trending down to 2 and has plateued Continue IV fluids.? Avoid nephrotoxins.? Monitor renal function.? Nephrology following Metabolic acidosis d/t renal failure--resolved , no need for further bicab UTI: Continue ceftriaxone.? culture negative, Ceftin at discharge Abd pain, exam bening, get non contrast CT need for inaptient: JOANA needs IVF till resolution of renal failure changing attending to me Quality Stroke Does the patient have a stroke diagnosis?: No VTE Prior VTE?: No VTE Risk Level:: Surgical - moderate VTE Device Contraindication: Treatment Not Indicated VTE Drug Contraindication: Treatment Not Indicated
[2021-09-16 12:00] VITALS: BP 143/86; PULSE 73; RESP 18; TEMP 36.9; O2SAT 95
[2021-09-16] MEDS: ondansetron HCL 4 MG/2 ML VIAL IVPUSH (12:25)
[2021-09-16] MEDS: oxyCODONE HCl Immed Release 5 MG TABLET 10 MG PO (12:25)
--- NOTE | 2021-09-16 12:34 | PM.DS ---
DS: Providers Provider Date of Service: 09/16/21 Date of admission: 09/11/21 17:31 Primary care physician: Farhad Orona MD Consults: 09/11/21 17:43 Consult to Hospitalist Stat Consulting Provider: Hospitalist Reason For Exam: JOANA 09/12/21 12:42 Consult to Nephrology Routine Consulting Provider: Adonay Magaña Reason for consultation: JOANA, possible ATN Has provider been notified: No DS: Diagnosis Discharge Diagnosis (1) Acute kidney injury: Status: Acute (2) BPH loc w urin obs/LUTS: Status: Acute DS: Summary Hospital Course Hospital Course: 76 year old male with history of colon cancer s/p surgery, radiation complicated urteral stricture and had indweling stent and was due to have it replace soon. He presented to the ED left-sided flank pain and bladder discomfort.?Has indwelling stent on left side.? He was noted to be acute renal failure with creatinne of 4, 1.6 in Janurary.. He was given Abx to cover for UTI and underwent urgent surgery for left stent exhange and post operative was put on IV fluid and gradually creatinine has trended down and present plateued at around 2. He was followed by Bharath. He was on empiric Ceftriaxone for presumed UTI, urine cultures has been negative. will transistion to oral ceftin to comlete a 10 day course. He will follow up with Dr. Reveles in 3 months. Of note he has not been eating much because he doesn't like the food, his daughter cooks him some special food at home. He was complaining of about some adominal discomfort today but exam is unremarkable. Offer to do CT of abdomen but daughter at bedside says that this is a chronic issues and prefer patient been discharged and going home and that is also what patient want, therefore CT is cancelled. Renal function is stable and can follow up on outpatient basis Time Spent with Patient Time attestation: Total time spent providing and/or coordinating discharge services: Discharge coordination time: Greater than 30 minutes Quality: Safe Use of Opioids Does Pt have an Active Cancer Diagnosis on the Problem List?: No Quality: Stroke Does the patient have a stroke diagnosis?: No Physical Exam Vital Signs: Vital Signs: Last Vital Signs Temp 98.4 F 09/16/21 12:00 Pulse 73 09/16/21 12:00 Resp 18 09/16/21 12:00 BP 143/86 H 09/16/21 12:00 Pulse Ox 95 09/16/21 12:00 O2 Del Method 09/16/21 12:00 BMI result Body Mass Index 19.9 Const: Other: General: AO X 3, no acute distress Resp: CTA bilateral CVS: S1,S2,RRR GI: +BS, NT, no distention Skin: No rash Neuro: motor grossly intact Psych: appropriate affect DS: Data Data Completed and Pending Pending studies at discharge: Pending at discharge 09/11/21 20:03 Surgical [PTH] Routine Labs on day of discharge: Laboratory Results - last 24 hr 09/16/21 08:57 Sodium 140 Potassium 3.9 Chloride 100 Carbon Dioxide 25 Anion Gap 19 BUN 21 H Creatinine 2.09 H Estim Creat Clear Calc 23.0 Estimated GFR 31 Random Glucose 123 H Calcium 8.6 D Preliminary micro results at discharge 09/11/21 16:44 Blood Culture - Preliminary Blood - Venous No growth after 48 hours. 09/11/21 16:36 Blood Culture - Preliminary Blood - Venous No growth after 48 hours. Discharge Plan Discharge Anticipated Discharge Date/Time: 09/16/21 12:29 Patient Disposition: Home, Self-Care Discharge Diagnosis: JOANA, Hydronephrosis, UTI Referrals: Name,MD Farhad [Primary Care Provider] - 1 Week Discharge Medications: New cefuroxime axetil 250 mg tablet 250 mg PO BID 7 Days Qty: 10 0RF Continued fluticasone propion-salmeterol 250-50 mcg/dose blister with device 1 ea PO Q12H hyoscyamine sulfate [Levsin] 0.125 mg tablet 0.125 mg PO Q4H PRN (Reason: Secretions) meclizine 25 mg tablet 25 mg PO DAILY PRN (Reason: Dizziness) oxycodone 10 mg tablet 10 mg PO QID PRN (Reason: pain) morphine concentrate 100 mg/5 mL (20 mg/mL) solution 5 mg PO Q1H PRN (Reason: Dyspnea) Rx Instructions: PT HAS NOT STARTED YET. OXYCODONE WORKING Discharge Orders: Discharge Order (Routine); Ordered 09/16/21 Ordered By: [facility] Diet: Advance to usual diet Activity on Discharge: As tolerated Stand Alone Forms: Patient Portal Discharge page Care Plan Goals: Full recovery from renal failure. Health Concerns: Chronic kidney disease, hydronephrosis Plan of Treatment: Follow-up with Dr. Reveles, follow-up with your primary care doctor, follow-up with your oncologist. take Ceftin for UTI Assessment: As above
--- NOTE | 2021-09-16 12:54 | MHC.CM.PN ---
Addendum entered by Regina Dobbs RN 09/16/21 13:12: Pt also active w/[facility] and they have been notified via [facility]. Original Note: PT MEDICALLY CLEARED FOR D/C HOME W/RESUMP OF [employer]/ 50 HRS, DTR FOR TRANSPORT.
== END 2021-09-16 15:30 | disposition home or self-care (01) | DRG 657 ==
LOC: HO.ED 17:45 → HO.EDOVER 18:23 → HO.S3 18:38
PROVIDERS: Internal Medicine; Nurse Practitioner Family; Admitting Provider Urology; Emergency Provider Emergency Medicine; PCP Internal Medicine Geriatric Medicine; Visit Provider Urology
PROC: 0TJB8ZZ Inspection of Bladder, Via Natural or Artificial Opening Endoscopic (ICD-10-PCS; CPT 52000; principal; 2021-09-11 18:30)
DX: C66.1 Malignant neoplasm of right ureter (principal); E87.2 Acidosis; N13.6 Pyonephrosis; N13.8 Other obstructive and reflux uropathy; N17.9 Acute kidney failure, unspecified; F03.90 Unspecified dementia, unspecified severity, without behavioral disturbance, psychotic disturbance, mood disturbance, and anxiety; M19.90 Unspecified osteoarthritis, unspecified site; J45.909 Unspecified asthma, uncomplicated; E78.00 Pure hypercholesterolemia, unspecified; N18.30 Chronic kidney disease, stage 3 unspecified; N40.1 Benign prostatic hyperplasia with lower urinary tract symptoms; Z85.038 Personal history of other malignant neoplasm of large intestine; Z92.3 Personal history of irradiation; Z20.822 Contact with and (suspected) exposure to COVID-19; Z87.891 Personal history of nicotine dependence; Z79.51 Long term (current) use of inhaled steroids; Z79.899 Other long term (current) drug therapy
CPT/HCPCS: 36415; 51798; 80048; 80053; 81001; 81003; 82803; 83605; 85025; 87040; 87086; 87635; 88305; 88341; 88342; 96365; 99285; C2617; J0131; J0696; J1100; J2370; J2405; J3010; Q9967

== ENCOUNTER → 2021-09-24 13:32 | Outpatient (BNVA) | payer OTHER, SELFPAY | PROVIDERS: PCP Internal Medicine Geriatric Medicine; Visit Provider Urology | DX: C18.9 Malignant neoplasm of colon, unspecified (principal); N13.30 Unspecified hydronephrosis | CPT/HCPCS: Q3014 ==